=== PATIENT | female | born 1990 | race African-American/Black ===

== ENCOUNTER 2016-10-04 16:58 | Emergency (ER) | payer OTHER ==
[~2016-10-04] VITALS: Ht 180.3 cm; Wt 180.1 kg
[~2016-10-04 16:58] MED LIST: ABILIFY; ABILIFY10 MG PO; ACCUNEB SO1.25 MG/1; ANTIVERT25 MG PO; APAP/CODEINE ELI5 M1 OR; ASPIR 8181 MG PO; ATIVAN0.5 M1 PO; ATIVAN1 MG PO; AZITHROMYCIN 2250 MG PO; BENADRYL25 MG PO; CLEOCIN HCL150 MG PO; COLACE100 MG PO; COMBIVENT INH; COZAAR; FLEXERIL PO; FLONASE 0.05%50 MCG NASAL; GABAPENTIN 100100 MG PO; HYCET 7.5 MG-3473 ML PO; IBUPROFEN 600600 M1 PO; IBUPROFEN 800800 M1 PO; IBUPROFEN 800800 MG PO; IRON325 PO; LEXAPRO 10 MG T10 M1 PO; LISINOPRIL10 MG PO; LISINOPRIL20 MG PO; LOPRESSOR25 PO; MEDROLDOSEPACK PO; MEDROXYPROGESTE10 MG PO; METFORMIN 500500 MG PO; METFORMIN HCL1000 MG PO; METFORMIN HCL500 MG PO; MUCINEX TA600 MG/TA2 PO; NAPROSYN500 MG PO; NORCO 5-325 TA1 EACH PO; NORVASC2.5 MG; OLEPTRO ER300 M1 PO; OLEPTRO ER300 MG PO; ONDANSETRON HCL4 M2 PO; PENICILLIN VK500 M1 PO; PEPCID40 MG PO; PHENERGAN 25 MG25 M1 PO; PHENERGAN 25 MG25 MG PO; PREDNISONE 20 M20 M1 PO; PREDNISONE50 MG PO; PROAIR HFA8.5 GM INH; PROMETHAZINE-C120 ML PO; PROPRANOLOL 1010 MG PO; PROVENTIL HFA6.7 G1 INH; REGLAN 10 MG TA10 MG PO; TOPAMAX 25 MG T25 M1 PO; TRINATE TABLET1 TAB PO; TYLENOL COLD H1 EACH PO; VALIUM2 MG PO; VENTOLIN HFA 1818 GM INH; VENTOLIN HFA INH8 GM IH; WELLBUTRIN XL150 M1 PO; XANAX 0.5 MG0.5 MG PO; ZOFRAN ODT4 MG PO; ZPAK PO
[2016-10-04] MEDS ORDERED: CLEOCIN HCL300 MG PO (17:33)
[2016-10-04] MEDS ORDERED: ONDANSETRON HCL4 M2 PO (17:38)
[2016-10-04 18:29] VITALS: BP 128/87
== END 2016-10-04 18:20 | disposition home or self-care (01) ==
LOC: ER 16:58
DX: K04.01 Reversible pulpitis (principal); K08.89 Other specified disorders of teeth and supporting structures; K02.9 Dental caries, unspecified; R11.0 Nausea; I11.0 Hypertensive heart disease with heart failure; I50.9 Heart failure, unspecified; E11.9 Type 2 diabetes mellitus without complications; J45.909 Unspecified asthma, uncomplicated; I48.91 Unspecified atrial fibrillation; Z98.890 Other specified postprocedural states; Z88.8 Allergy status to other drugs, medicaments and biological substances; Z88.0 Allergy status to penicillin; Z91.010 Allergy to peanuts

== ENCOUNTER 2016-11-22 00:01 | Observation (INO) | payer OTHER ==
[~2016-11-22] VITALS: Ht 180.3 cm; Wt 202.3 kg
--- NOTE | ~2016-11-22 | 2DMMODE ---
[facility] [place] [address] 2 D/M-MODE ECHOCARDIOGRAM Name: RADHA BOURGEOIS Room #: 208-P [facility] IN ..#: [id number] Admission: 11/22/16 Attend Phys: Amando Galeano MD Discharge: Date of : 86 Date of Service: 11/22/16 1507 Report #: [id number] THIS REPORT FOR: //name// APPROVED REPORT EXAM: Comprehensive 2D, Doppler, and color-flow Echocardiogram Patient Location: Bedside Blood Pressure: 112/54 mmHg HR: 67 bpm Other Information Study Quality: Adequate Indications Diabetes Hypertension/HDD Chest Pain 2D Dimensions LVEF(%): 57.19 (>50%) IVSd: 8.62 (7-11mm) LVOT Diam: 24.24 (18-24mm) LVDd: 53.83 mm PWd: 8.69 (7-11mm) Ascending Aorta: 31.61 mm LVDs: 37.51 (25-40mm) IVC: 11.00 mm Aortic Root: 33.00 mm López's LVEF: 57.19 % Volumes Left Atrial Volume (Systole) Single Plane 4CH: 89.89 mL Single Plane 2CH: 61.89 mL LA ESV Index: 28.00 mL/m2 Aortic Valve AoV Peak Robbie.: 1.60 m/s AO Peak Gr.: 10.22 mmHg LV Max P.43 mmHg LV Max: 1.05 m/s Mitral Valve MV PHT: 66.33 ms MV E Max Robbie.: 0.84 m/s E/A Ratio: 1.3 MV A Robbie.: 0.65 m/s MV Decel. Time: 228.73 ms [facility] [place] [address] [place] [address] 2 D/M-MODE ECHOCARDIOGRAM Name: RADHA BOURGEOIS [facility] Room #: 208-P [facility] IN ..#: [id number] Admission: 11/22/16 Attend Phys: Amando Galeano MD Discharge: Date of : 86 Date of Service: 11/22/16 1507 Report #: [id number] Pulmonary Valve PV Peak Robbie.: 0.85 m/s PV Peak Gr.: 5.63 mmHg IA End Vmax: 0.85 m/s Tricuspid Valve TR Peak Robbie.: 2.43 m/s RAP Estimate: 5.00 mmHg TR Peak Gr.: 23.61 mmHg Left Ventricle The left ventricle is normal size. There is normal LV segmental wall motion. There is normal left ventricular wall thickness. Left ventricular systolic function is normal. The left ventricular ejection fraction is within the normal range. LVEF is 55-60%. The left ventricular diastolic function is normal. Right Ventricle The right ventricle is normal size. The right ventricular systolic function is normal. Atria The left atrium size is normal. The right atrium size is normal. Aortic Valve The aortic valve is normal in structure. No aortic regurgitation is present. There is no aortic valvular stenosis. Mitral Valve The mitral valve is normal in structure. Trace mitral regurgitation. Tricuspid Valve The tricuspid valve is normal in structure. There is trace tricuspid regurgitation. The right atrial pressure is estimated at 5 mmHg. There is no pulmonary hypertension. Pulmonic Valve The pulmonary valve is normal in structure. There is no pulmonic valvular regurgitation. Great Vessels The aortic root is normal in size. IVC is normal in size and collapses >50% with inspiration. Pericardium There is no pericardial effusion. [facility] [address] [place] [address] 2 D/M-MODE ECHOCARDIOGRAM Name: RADHA BOURGEOIS Room #: 208-P [facility] IN .R.#: [id number] Admission: 11/22/16 Attend Phys: Amando Galeano MD Discharge: Date of : 86 Date of Service: 11/22/16 1507 Report #: [id number] <Conclusion> The left ventricle is normal size. Left ventricular systolic function is normal. LVEF is 55-60%. Trace mitral regurgitation. There is trace tricuspid regurgitation. The right atrial pressure is estimated at 5 mmHg. There is no pulmonary hypertension. <ELECTRONICALLY SIGNED> By: Guru Cabrera MD 11/22/16 1507 1507 1507 Guru Cabrera MD /INF
--- NOTE | ~2016-11-22 | EKG ---
[address] [place] [address] ELECTROCARDIOGRAM REPORT Name: RADHA BOURGEOIS Room #: 208-P [facility]..#: [id number] Admission: 11/22/16 Attend Phys: Amando Galeano MD Discharge: Date of : 86 Report #: [id number] THIS REPORT FOR: //name// [facility] ED Test Date: 2016-11-22 Test Time: 00:06:13 Pat Name: RADHA BOURGEOIS Department: Room: 208 Gender: F Supervisor Game Farm: RAYSHAWN : 1990 Requested By: Smith Chiang Order Number: [id number] MD: Alex Leggett Measurements Intervals [place] Rate: 82 P: 56 [place]: 159 QRS: 4 QRSD: 90 T: 15 QT: 386 QTc: 451 Interpretive Statements Sinus rhythm Probable left atrial enlargement Probable left ventricular hypertrophy Compared to ECG 11/13/2016 13:30:33 Sinus arrhythmia no longer present Electronically Signed On 11-22-2016 9:06:15 CDT by Alex Leggett [email or web address] <ELECTRONICALLY SIGNED> By: Alex Leggett MD, [facility] 11/22/16905 Alex Leggett MD, FAC /EPI
[~2016-11-22 00:01] MED LIST changes: +CLEOCIN HCL300 MG PO
[2016-11-22] MEDS ORDERED: XANAX 0.5 MG0.5 MG PO (00:12)
[2016-11-22 02:22] LABS: ABSOLUTE NEUTROPHILS 6.4 thou/uL (1.4-8.2); BASOPHILS 0.2 % (0.0-2.0); EOSINOPHILS 1.4 % (0.0-3.0); HEMATOCRIT 29.5 % (37.0-47.0); HEMOGLOBIN 9.4 gm/dL (12.0-15.0); LYMPHOCYTES 28.6 % (24.0-44.0); MCH 22.5 pg (26.0-34.0); MCHC 31.8 g/dL (28.0-37.0); MCV 70.7 fL (80.0-100.0); MONOCYTES 5.9 % (1.0-8.0); PLATELET COUNT 360 thou/uL (150-400); POLYS 63.9 % (36.0-66.0); RBC 4.17 mil/uL (4.20-5.00); WBC 10.1 thou/uL (4.0-11.0)
[2016-11-22 02:24] LABS: MANUAL DIFF NO
[2016-11-22 02:35] LABS: APTT 29.3 Seconds (24.5-32.8); PROTIME 10.5 Seconds (9.3-11.4)
[2016-11-22 02:40] LABS: ALBUMIN 3.3 g/dL (3.4-5.0); ALKALINE PHOSPHATASE 84 U/L (46-116); ANION GAP 9 mmol/L (7-16); BUN 19 mg/dL (7-18); CALCIUM 8.8 mg/dL (8.5-10.1); CHLORIDE 104 mmol/L (98-107); CO2 25 mmol/L (21-32); CREATININE 0.8 mg/dL (0.6-1.3); MAGNESIUM 1.8 mg/dL (1.8-2.4); NT-PRO BRAIN NAT PEPTIDE 23 pg/mL (<300); SGOT 12 U/L (15-37); SGPT 21 U/L (30-65); SODIUM 138 mmol/L (136-145); TOTAL BILIRUBIN 0.2 mg/dL (<0.1-1.0); TOTAL PROTEIN 6.9 g/dL (6.4-8.2)
[2016-11-22 02:49] LABS: GLUCOSE 111 mg/dL (70-99)
[2016-11-22 03:01] LABS: CK-MB MASS < 0.5 ng/mL (<0.5-3.6)
[2016-11-23] MEDS ORDERED: HYDROCODON-ACE1 EAC7 PO (11:45)
== END 2016-11-23 13:55 | disposition home or self-care (01) ==
LOC: ER 00:01 → EROBS 01:53 → ER 01:53 → EROBS 02:08 → 2N 02:08
PROVIDERS: Emergency Medicine
DX: I47.1 Supraventricular tachycardia (principal); E66.01 Morbid (severe) obesity due to excess calories; J45.909 Unspecified asthma, uncomplicated; I11.0 Hypertensive heart disease with heart failure; I50.9 Heart failure, unspecified; E11.9 Type 2 diabetes mellitus without complications; D21.9 Benign neoplasm of connective and other soft tissue, unspecified; G43.909 Migraine, unspecified, not intractable, without status migrainosus; E86.0 Dehydration

== ENCOUNTER 2017-01-15 18:57 | Emergency (ER) | payer OTHER ==
[~2017-01-15] VITALS: Ht 180.3 cm; Wt 202.3 kg
--- NOTE | ~2017-01-15 | EKG ---
[place] [address] [facility] [place] [address] ELECTROCARDIOGRAM REPORT Name: BKRADHA TANG Room #: [facility] M.R.#: [id number] Admission: Attend Phys: Discharge: Date of : 86 Report #: [id number] THIS REPORT FOR: //name// [facility] ED Test Date: 2017-01-15 Test Time: 19:32:29 Pat Name: RADHA BOURGEOIS Department: Room: Gender: F Staff Software Engineer: URI : 1990 Requested By: Umair Trujillo Order Number: [id number] MD: Measurements Intervals [place] Rate: 89 P: 54 [place]: 154 QRS: -3 QRSD: 89 T: -3 QT: 365 QTc: 445 Interpretive Statements Sinus rhythm LVH by voltage Compared to ECG 11/22/2016 00:06:13 No significant changes [email or web address] By: 31 31 Ernestine Sinha MD /EPI
[~2017-01-15 18:57] MED LIST changes: +HYDROCODON-ACE1 EAC7 PO
[2017-01-15 20:42] LABS: ABSOLUTE NEUTROPHILS 9.4 thou/uL (1.4-8.2); BASOPHILS 0.8 % (0.0-2.0); HEMATOCRIT 29.5 % (37.0-47.0); HEMOGLOBIN 9.3 gm/dL (12.0-15.0); LYMPHOCYTES 21.3 % (24.0-44.0); MCHC 31.6 g/dL (28.0-37.0); MCV 69.5 fL (80.0-100.0); MONOCYTES 4.6 % (1.0-8.0); PLATELET COUNT 297 thou/uL (150-400); POLYS 72.3 % (36.0-66.0); RBC 4.24 mil/uL (4.20-5.00); RDW 18.5 % (10.5-14.5); WBC 13.7 thou/uL (4.0-11.0)
[2017-01-15 20:43] LABS: MANUAL DIFF NO
[2017-01-15 20:50] LABS: CALCIUM 8.8 mg/dL (8.5-10.1); CREATININE 0.8 mg/dL (0.6-1.0); POTASSIUM 4.1 mmol/L (3.5-5.1)
[2017-01-15 20:55] LABS: ALBUMIN 3.2 g/dL (3.4-5.0); TOTAL BILIRUBIN 0.3 mg/dL (<0.1-1.0); TOTAL PROTEIN 7.5 g/dL (6.4-8.2)
[2017-01-15 22:12] LABS: URINE BILIRUBIN NEGATIVE (Negative); URINE BLOOD NEGATIVE (Negative); URINE COLOR YELLOW; URINE GLUCOSE-RANDOM* NEGATIVE (Negative); URINE KETONES NEGATIVE (Negative); URINE NITRITE NEGATIVE (Negative); URINE PROTEIN (DIPSTICK) NEGATIVE (Negative); URINE SPECIFIC GRAVITY 1.025 (1.003-1.035)
[2017-01-15] MEDS ORDERED: NORCO 5-325 TA1 EACH PO (22:22)
[2017-01-15] MEDS ORDERED: MACROBID 100 M100 M1 PO (22:23)
[2017-01-15] MEDS ORDERED: TORADOL 10 MG T10 MG PO (22:23)
== END 2017-01-15 22:37 | disposition home or self-care (01) ==
LOC: ER 18:57
PROVIDERS: Physician Assistant
DX: N83.201 Unspecified ovarian cyst, right side (principal); I11.0 Hypertensive heart disease with heart failure; I50.9 Heart failure, unspecified; G43.909 Migraine, unspecified, not intractable, without status migrainosus; E11.9 Type 2 diabetes mellitus without complications; J45.909 Unspecified asthma, uncomplicated; I48.91 Unspecified atrial fibrillation; Z86.2 Personal history of diseases of the blood and blood-forming organs and certain disorders involving the immune mechanism; Z88.0 Allergy status to penicillin; Z91.010 Allergy to peanuts; Z88.8 Allergy status to other drugs, medicaments and biological substances

== ENCOUNTER 2017-04-10 10:51 | Emergency (ER) | payer OTHER ==
[~2017-04-10] VITALS: Ht 180.3 cm; Wt 180.1 kg
[~2017-04-10 10:51] MED LIST changes: +MACROBID 100 M100 M1 PO; +TORADOL 10 MG T10 MG PO
[2017-04-10] MEDS ORDERED: FLONASE 0.05%50 MCG NASAL (11:15)
[2017-04-10] MEDS ORDERED: CLARITIN10 MG PO (11:15)
[2017-04-10] MEDS ORDERED: PROAIR HFA8.5 GM INH (11:15)
== END 2017-04-10 11:16 | disposition home or self-care (01) ==
LOC: ER 10:51
DX: J32.9 Chronic sinusitis, unspecified (principal); J06.9 Acute upper respiratory infection, unspecified; I11.0 Hypertensive heart disease with heart failure; I50.9 Heart failure, unspecified; E11.9 Type 2 diabetes mellitus without complications; J45.909 Unspecified asthma, uncomplicated; G43.909 Migraine, unspecified, not intractable, without status migrainosus; I48.91 Unspecified atrial fibrillation; Z91.010 Allergy to peanuts; Z88.0 Allergy status to penicillin; Z88.8 Allergy status to other drugs, medicaments and biological substances

== ENCOUNTER 2017-04-26 02:43 | Emergency (ER) | payer OTHER ==
[~2017-04-26] VITALS: Ht 180.3 cm; Wt 180.1 kg
[~2017-04-26 02:43] MED LIST changes: +CLARITIN10 MG PO
[2017-04-26 03:04] LABS: URINE BILIRUBIN NEGATIVE (Negative); URINE BLOOD 3+ (Negative); URINE COLOR YELLOW; URINE GLUCOSE-RANDOM* NEGATIVE (Negative); URINE KETONES NEGATIVE (Negative); URINE LEUKOCYTES-REFLEX 1+ (Negative); URINE PROTEIN (DIPSTICK) NEGATIVE (Negative); URINE SPECIFIC GRAVITY 1.015 (1.003-1.035); URINE UROBILINOGEN 0.2 E.U./dl (0.2-1.0)
[2017-04-26 03:21] LABS: SQUAMOUS >10 Many /LPF (0-3)
[2017-04-26 03:22] LABS: AMORPHOUS URATES Few /LPF (None Seen); CASTS None Seen /LPF (None Seen); URINE WBC-REFLEX 0-5 Rare /HPF (0-5)
[2017-04-26] MEDS ORDERED: KEFLEX500 MG PO (04:48)
[2017-04-29 22:06] LABS: CHLAMYDIA TRACHOMATIS-PCR Negative (Negative); NEISSERIA GONORRHEA-PCR Negative (Negative)
== END 2017-04-26 05:07 | disposition home or self-care (01) ==
LOC: ER 02:43
PROVIDERS: Emergency Medicine
DX: N39.0 Urinary tract infection, site not specified (principal); E11.9 Type 2 diabetes mellitus without complications; J45.909 Unspecified asthma, uncomplicated; G43.909 Migraine, unspecified, not intractable, without status migrainosus; I48.91 Unspecified atrial fibrillation; I11.0 Hypertensive heart disease with heart failure; I50.9 Heart failure, unspecified; Z86.2 Personal history of diseases of the blood and blood-forming organs and certain disorders involving the immune mechanism; Z90.89 Acquired absence of other organs; Z88.8 Allergy status to other drugs, medicaments and biological substances; Z88.0 Allergy status to penicillin; Z91.010 Allergy to peanuts

== ENCOUNTER 2017-05-31 20:18 | Emergency (ER) | payer OTHER ==
[~2017-05-31] VITALS: Ht 180.3 cm; Wt 203.7 kg
[~2017-05-31 20:18] MED LIST changes: +KEFLEX500 MG PO
[2017-05-31] MEDS ORDERED: TRAMADOL 50 MG50 MG PO (21:32)
[2017-05-31 22:32] LABS: ABSOLUTE NEUTROPHILS 8.5 thou/uL (1.4-8.2); BASOPHILS 0.2 % (0.0-2.0); EOSINOPHILS 0.7 % (0.0-3.0); HEMATOCRIT 26.7 % (37.0-47.0); HEMOGLOBIN 8.4 gm/dL (12.0-15.0); MANUAL DIFF NO; MCH 21.2 pg (26.0-34.0); MCHC 31.4 g/dL (28.0-37.0); MCV 67.4 fL (80.0-100.0); MONOCYTES 4.6 % (1.0-8.0); PLATELET COUNT 453 thou/uL (150-400); POLYS 76.5 % (36.0-66.0); RBC 3.96 mil/uL (4.20-5.00); RDW 18.4 % (10.5-14.5); WBC 11.1 thou/uL (4.0-11.0)
[2017-05-31 22:37] LABS: URINE BLOOD 3+ (Negative); URINE COLOR YELLOW; URINE GLUCOSE-RANDOM* NEGATIVE (Negative); URINE KETONES NEGATIVE (Negative); URINE NITRITE NEGATIVE (Negative); URINE PROTEIN (DIPSTICK) 1+ (Negative); URINE UROBILINOGEN 0.2 E.U./dl (0.2-1.0)
[2017-05-31 22:41] LABS: ICTOTEST (BILI CONFIRMATORY) Negative (Negative); URINE BILIRUBIN NEGATIVE (Negative)
[2017-05-31 22:47] LABS: ANISOCYTOSIS 2+; HYPOCHROMASIA 2+; MICROCYTES 2+; POLYCHROMASIA 1+
[2017-05-31 23:02] LABS: CASTS None Seen /LPF (None Seen); SQUAMOUS None Seen /LPF (0-3); URINE WBC 0-5 Rare /HPF (0-5)
[2017-05-31 23:03] LABS: CRYSTALS None Seen /LPF (None Seen); URINE RBC >20 Many /HPF (0-2)
[2017-06-03 17:07] LABS: CHLAMYDIA TRACHOMATIS-PCR Negative (Negative); NEISSERIA GONORRHEA-PCR Negative (Negative)
== END 2017-05-31 23:27 | disposition home or self-care (01) ==
LOC: ER 20:18
PROVIDERS: Physician Assistant
DX: N93.8 Other specified abnormal uterine and vaginal bleeding (principal); D64.9 Anemia, unspecified; I11.0 Hypertensive heart disease with heart failure; I50.9 Heart failure, unspecified; E11.9 Type 2 diabetes mellitus without complications; G43.909 Migraine, unspecified, not intractable, without status migrainosus; I48.91 Unspecified atrial fibrillation; Z88.0 Allergy status to penicillin; Z91.010 Allergy to peanuts; Z88.8 Allergy status to other drugs, medicaments and biological substances

== ENCOUNTER 2017-06-17 04:41 | Emergency (ER) | payer OTHER ==
[~2017-06-17] VITALS: Ht 180.3 cm; Wt 192.8 kg
[~2017-06-17 04:41] MED LIST changes: +TRAMADOL 50 MG50 MG PO
[2017-06-17] MEDS ORDERED: IBUPROFEN 200200 M1 PO (04:47)
[2017-06-17] MEDS ORDERED: NAPROSYN500 MG PO (04:47)
[2017-06-17 05:32] LABS: ABSOLUTE NEUTROPHILS 7.3 thou/uL (1.4-8.2); BASOPHILS 0.3 % (0.0-2.0); EOSINOPHILS 1.2 % (0.0-3.0); HEMATOCRIT 25.5 % (37.0-47.0); LYMPHOCYTES 23.1 % (24.0-44.0); MCH 20.8 pg (26.0-34.0); MCHC 31.5 g/dL (28.0-37.0); MCV 66.1 fL (80.0-100.0); MONOCYTES 4.1 % (1.0-8.0); PLATELET COUNT 465 thou/uL (150-400); POLYS 71.3 % (36.0-66.0); RBC 3.86 mil/uL (4.20-5.00); RDW 18.6 % (10.5-14.5); WBC 10.2 thou/uL (4.0-11.0)
[2017-06-17 05:33] LABS: MANUAL DIFF NO
[2017-06-17 05:46] LABS: ANISOCYTOSIS 2+; HYPOCHROMASIA 2+; LARGE PLATELETS SEVERAL; MICROCYTES 3+
[2017-06-17] MEDS ORDERED: PROVERA10 MG PO (05:54)
== END 2017-06-17 06:25 | disposition home or self-care (01) ==
LOC: ER 04:41
PROVIDERS: Emergency Medicine
DX: N94.6 Dysmenorrhea, unspecified (principal); D64.9 Anemia, unspecified; E66.01 Morbid (severe) obesity due to excess calories

== ENCOUNTER 2017-08-06 15:54 | Emergency (ER) | payer OTHER ==
[~2017-08-06] VITALS: Ht 180.3 cm; Wt 192.8 kg
--- NOTE | ~2017-08-06 | EKG ---
[place] [address] [facility] [place] [address] ELECTROCARDIOGRAM REPORT Name: RADHA BOURGEOIS TANG [facility] [id number] Admission: 08/06/17 Attend Phys: Discharge: 08/06/17 Date of : 86 Report #: [id number] THIS REPORT FOR: //name// [facility] ED Test Date: 2017-08-06 Test Time: 16:05:02 Pat Name: RADHA BOURGEOIS Department: Room: Gender: F Manager Of Pharmacy: VANESA : 1990 Requested By: Order Number: [id number] MD: Gustavo Munoz Measurements Intervals [place] Rate: 78 P: 46 [place]: 153 QRS: 0 QRSD: 90 T: 3 QT: 382 QTc: 436 Interpretive Statements Sinus rhythm LVH by voltage Compared to ECG 02/01/2017 18:16:57 T-wave abnormality now present Electronically Signed On 08-06-2017 20:19:50 SKINNER [employer]ELTS by Gustavo Munoz [email or web address] <ELECTRONICALLY SIGNED> By: Gustavo Munoz MD 08/06/172018 1605 1605 MD ОЛЬГА Will
[~2017-08-06 15:54] MED LIST changes: +IBUPROFEN 200200 M1 PO; +PROVERA10 MG PO
[2017-08-06 16:37] LABS: HEMATOCRIT 27.7 % (37.0-47.0); HEMOGLOBIN 8.6 gm/dL (12.0-15.0); MCH 19.9 pg (26.0-34.0); MCHC 31.1 g/dL (28.0-37.0); MCV 64.1 fL (80.0-100.0); PLATELET COUNT 460 thou/uL (150-400); RBC 4.32 mil/uL (4.20-5.00); RDW 19.5 % (10.5-14.5); WBC 9.9 thou/uL (4.0-11.0)
[2017-08-06 16:51] LABS: CALCIUM 8.8 mg/dL (8.5-10.1); CREATININE 0.7 mg/dL (0.6-1.0); POTASSIUM 3.9 mmol/L (3.5-5.1)
[2017-08-06 16:54] LABS: MANUAL DIFF YES
[2017-08-06 16:57] LABS: ALBUMIN 2.9 g/dL (3.4-5.0); TOTAL BILIRUBIN 0.3 mg/dL (<0.1-1.0); TOTAL PROTEIN 7.3 g/dL (6.4-8.2)
[2017-08-06 17:45] LABS: ABSOLUTE NEUTROPHILS 7.2 thou/uL (1.4-8.2); ANISOCYTOSIS 3+; MICROCYTES 3+; TOTAL CELL COUNT 100
[2017-08-06 17:46] LABS: HYPOCHROMASIA 3+; SCHISTOCYTES FEW
[2017-08-06] MEDS ORDERED: SIMETHICON CHEW80 M1 PO (18:29)
[2017-08-06] MEDS ORDERED: CITRATE OF MAG296 M1 PO (18:29)
[2017-08-06] MEDS ORDERED: SENNA-DOCUSATE1 EACH PO (18:29)
== END 2017-08-06 19:08 | disposition home or self-care (01) ==
LOC: ER 15:54
PROVIDERS: Emergency Medicine
DX: K59.00 Constipation, unspecified (principal); I11.0 Hypertensive heart disease with heart failure; I50.9 Heart failure, unspecified; E11.9 Type 2 diabetes mellitus without complications; J45.909 Unspecified asthma, uncomplicated; I48.91 Unspecified atrial fibrillation; G43.909 Migraine, unspecified, not intractable, without status migrainosus; Z86.2 Personal history of diseases of the blood and blood-forming organs and certain disorders involving the immune mechanism; Z88.0 Allergy status to penicillin; Z88.8 Allergy status to other drugs, medicaments and biological substances; Z91.010 Allergy to peanuts

== ENCOUNTER 2017-08-26 21:49 | Emergency (ER) | payer OTHER ==
[~2017-08-26] VITALS: Ht 180.3 cm; Wt 180.1 kg
[~2017-08-26 21:49] MED LIST changes: +CITRATE OF MAG296 M1 PO; +SENNA-DOCUSATE1 EACH PO; +SIMETHICON CHEW80 M1 PO
[2017-08-26 22:17] LABS: URINE BILIRUBIN NEGATIVE (Negative); URINE BLOOD 1+ (Negative); URINE COLOR YELLOW; URINE GLUCOSE-RANDOM* NEGATIVE (Negative); URINE KETONES NEGATIVE (Negative); URINE LEUKOCYTES-REFLEX NEGATIVE (Negative); URINE PROTEIN (DIPSTICK) NEGATIVE (Negative); URINE UROBILINOGEN 0.2 E.U./dl (0.2-1.0)
[2017-08-26 22:32] LABS: CASTS None Seen /LPF (None Seen); CRYSTALS None Seen /LPF (None Seen); SQUAMOUS 4-10 Moderate /LPF (0-3); URINE RBC 0-2 Rare /HPF (0-2); URINE WBC-REFLEX 0-5 Rare /HPF (0-5)
[2017-08-26] MEDS ORDERED: ZOFRAN4 MG PO (22:46)
== END 2017-08-26 22:52 | disposition home or self-care (01) ==
LOC: ER 21:49
PROVIDERS: Emergency Medicine
DX: T40.2X5A Adverse effect of other opioids, initial encounter (principal); R11.2 Nausea with vomiting, unspecified; R39.15 Urgency of urination; I10 Essential (primary) hypertension; E11.9 Type 2 diabetes mellitus without complications; J45.909 Unspecified asthma, uncomplicated; I48.91 Unspecified atrial fibrillation; R00.0 Tachycardia, unspecified; I50.9 Heart failure, unspecified; I49.8 Other specified cardiac arrhythmias; Z98.890 Other specified postprocedural states; Z88.0 Allergy status to penicillin; Z88.8 Allergy status to other drugs, medicaments and biological substances; Y92.89 Other specified places as the place of occurrence of the external cause; Z91.010 Allergy to peanuts

== ENCOUNTER 2017-12-09 19:47 | Emergency (ER) | payer OTHER ==
[~2017-12-09] VITALS: Ht 180.3 cm; Wt 192.3 kg
[~2017-12-09 19:47] MED LIST changes: +ZOFRAN4 MG PO
[2017-12-09 20:09] LABS: URINE BILIRUBIN NEGATIVE (Negative); URINE BLOOD 3+ (Negative); URINE CLARITY SL CLOUDY; URINE COLOR YELLOW; URINE GLUCOSE-RANDOM* NEGATIVE (Negative); URINE KETONES NEGATIVE (Negative); URINE LEUKOCYTES NEGATIVE (Negative); URINE NITRITE NEGATIVE (Negative); URINE PROTEIN (DIPSTICK) TRACE (Negative); URINE SPECIFIC GRAVITY 1.025 (1.005-1.035); URINE UROBILINOGEN 0.2 E.U./dl (0.2-1.0)
[2017-12-09 20:17] LABS: CASTS None Seen /LPF (None Seen); CRYSTALS None Seen /LPF (None Seen); SQUAMOUS 0-3 Few /LPF (0-3); URINE WBC 0-5 Rare /HPF (0-5)
[2017-12-09 20:37] LABS: HEMATOCRIT 27.5 % (37.0-47.0); HEMOGLOBIN 8.6 gm/dL (12.0-15.0); MCH 19.9 pg (26.0-34.0); MCHC 31.1 g/dL (28.0-37.0); RBC 4.29 mil/uL (4.20-5.00); RDW 20.1 % (10.5-14.5); WBC 11.4 thou/uL (4.0-11.0)
[2017-12-09 20:47] LABS: CALCIUM 8.8 mg/dL (8.5-10.1); CREATININE 0.9 mg/dL (0.6-1.0); POTASSIUM 3.5 mmol/L (3.5-5.1)
[2017-12-09] MEDS ORDERED: HYDROCODONE-AP1 EAC6 PO ×2 (21:02→21:06)
[2017-12-09] MEDS ORDERED: IRON325 PO ×2 (21:02→21:06)
[2017-12-09] MEDS ORDERED: PROVERA10 MG PO ×2 (21:13→21:14)
[2017-12-11 14:09] LABS: NEISSERIA GONORRHEA-PCR Negative (Negative)
== END 2017-12-09 21:29 | disposition home or self-care (01) ==
LOC: ER 19:47
PROVIDERS: Physician Assistant
DX: N94.6 Dysmenorrhea, unspecified (principal); D64.9 Anemia, unspecified; E11.9 Type 2 diabetes mellitus without complications; J45.909 Unspecified asthma, uncomplicated; I11.0 Hypertensive heart disease with heart failure; I50.9 Heart failure, unspecified; G43.909 Migraine, unspecified, not intractable, without status migrainosus; I48.91 Unspecified atrial fibrillation; Z88.0 Allergy status to penicillin; Z88.8 Allergy status to other drugs, medicaments and biological substances; Z91.010 Allergy to peanuts; Z20.2 Contact with and (suspected) exposure to infections with a predominantly sexual mode of transmission

== ENCOUNTER 2018-01-03 17:41 | Emergency (ER) | payer OTHER ==
[~2018-01-03] VITALS: Ht 180.3 cm; Wt 192.8 kg
[~2018-01-03 17:41] MED LIST changes: +HYDROCODONE-AP1 EAC6 PO
[2018-01-03] MEDS ORDERED: BACTRIM DS TAB1 EACH PO (18:45)
[2018-01-03] MEDS ORDERED: HYDROCODONE-AP1 EAC6 PO (18:45)
== END 2018-01-03 20:20 | disposition home or self-care (01) ==
LOC: ER 17:41
DX: S81.841A Puncture wound with foreign body, right lower leg, initial encounter (principal); E11.9 Type 2 diabetes mellitus without complications; J45.909 Unspecified asthma, uncomplicated; G43.909 Migraine, unspecified, not intractable, without status migrainosus; I48.91 Unspecified atrial fibrillation; I11.0 Hypertensive heart disease with heart failure; I50.9 Heart failure, unspecified; Z88.0 Allergy status to penicillin; W34.00XA Accidental discharge from unspecified firearms or gun, initial encounter; Y93.89 Activity, other specified; Y92.89 Other specified places as the place of occurrence of the external cause; Y99.8 Other external cause status

== ENCOUNTER 2018-02-12 14:14 | Emergency (ER) | payer OTHER ==
[~2018-02-12] VITALS: Ht 180.3 cm; Wt 192.8 kg
[~2018-02-12 14:14] MED LIST changes: +ADVIL200 M1 PO; +ASPIRIN325 PO; +BACTRIM DS TAB1 EACH PO; +PHENAZOPYRIDIN200 M2 PO; +PREDNISONE 10 M10 MG PO
[2018-02-12 15:33] LABS: URINE BILIRUBIN NEGATIVE (Negative); URINE BLOOD 3+ (Negative); URINE CLARITY CLEAR; URINE COLOR YELLOW; URINE GLUCOSE-RANDOM* NEGATIVE (Negative); URINE KETONES NEGATIVE (Negative); URINE LEUKOCYTES-REFLEX NEGATIVE (Negative); URINE NITRITE-REFLEX NEGATIVE (Negative); URINE PROTEIN (DIPSTICK) NEGATIVE (Negative); URINE SPECIFIC GRAVITY 1.015 (1.005-1.035); URINE UROBILINOGEN 0.2 E.U./dl (0.2-1.0)
[2018-02-12 15:42] LABS: BACTERIA-REFLEX None Seen /HPF (None Seen); CASTS None Seen /LPF (None Seen); CRYSTALS None Seen /LPF (None Seen); SQUAMOUS 4-10 Moderate /LPF (0-3); URINE RBC 3-10 Few /HPF (0-2); URINE WBC-REFLEX 0-5 Rare /HPF (0-5)
[2018-02-12] MEDS ORDERED: MEDROXYPROGESTE10 MG PO (16:37)
[2018-02-13 14:12] LABS: NEISSERIA GONORRHEA-PCR Negative (Negative)
== END 2018-02-12 17:10 | disposition home or self-care (01) ==
LOC: ER 14:14
PROVIDERS: Emergency Medicine
DX: R10.2 Pelvic and perineal pain (principal); E11.9 Type 2 diabetes mellitus without complications; J45.909 Unspecified asthma, uncomplicated; G43.909 Migraine, unspecified, not intractable, without status migrainosus; I48.91 Unspecified atrial fibrillation; I11.0 Hypertensive heart disease with heart failure; I50.9 Heart failure, unspecified; Z88.0 Allergy status to penicillin; Z91.010 Allergy to peanuts

== ENCOUNTER 2018-02-26 14:57 | Inpatient (IN) | payer OTHER ==
[~2018-02-26] VITALS: Ht 180.3 cm; Wt 208.2 kg
[2018-02-26 14:58] VITALS: BP 120/55
[2018-02-26 18:33] VITALS: BP 128/67
[2018-02-26 18:39] LABS: HEMATOCRIT 26.1 % (37.0-47.0); HEMOGLOBIN 8.2 gm/dL (12.0-15.0); MCH 19.8 pg (26.0-34.0); MCHC 31.4 g/dL (28.0-37.0); RBC 4.15 mil/uL (4.20-5.00); RDW 19.5 % (10.5-14.5); WBC 13.3 thou/uL (4.0-11.0)
[2018-02-26 18:50] LABS: CALCIUM 8.9 mg/dL (8.5-10.1); CREATININE 0.7 mg/dL (0.6-1.0); POTASSIUM 3.7 mmol/L (3.5-5.1)
[2018-02-26 19:39] VITALS: BP 128/67
[2018-02-26 20:00] VITALS: BP 120/69
[2018-02-27 04:48] VITALS: BP 106/60
[2018-02-27 05:28] LABS: HEMATOCRIT 25.3 % (37.0-47.0); HEMOGLOBIN 7.7 gm/dL (12.0-15.0); MCH 19.4 pg (26.0-34.0); MCHC 30.4 g/dL (28.0-37.0); MCV 63.7 fL (80.0-100.0); RBC 3.97 mil/uL (4.20-5.00); RDW 19.7 % (10.5-14.5); WBC 12.5 thou/uL (4.0-11.0)
[2018-02-27 05:42] LABS: CALCIUM 8.5 mg/dL (8.5-10.1); CREATININE 0.9 mg/dL (0.6-1.0); POTASSIUM 4.3 mmol/L (3.5-5.1)
[2018-02-27 16:26] LABS: URINE BILIRUBIN NEGATIVE (Negative); URINE BLOOD NEGATIVE (Negative); URINE CLARITY CLEAR; URINE COLOR YELLOW; URINE GLUCOSE-RANDOM* NEGATIVE (Negative); URINE KETONES NEGATIVE (Negative); URINE LEUKOCYTES-REFLEX 2+ (Negative); URINE NITRITE-REFLEX NEGATIVE (Negative); URINE PROTEIN (DIPSTICK) NEGATIVE (Negative); URINE UROBILINOGEN 0.2 E.U./dl (0.2-1.0)
[2018-02-27 16:48] LABS: BACTERIA-REFLEX None Seen /HPF (None Seen); CASTS None Seen /LPF (None Seen); CRYSTALS None Seen /LPF (None Seen); SQUAMOUS >10 Many /LPF (0-3)
[2018-02-27] MEDS ORDERED: PREDNISONE 10 M10 MG PO (17:09)
[2018-02-27] MEDS ORDERED: LEVAQUIN 500 M500 M4 PO (17:09)
[2018-02-27] MEDS ORDERED: PEPCID20 MG PO (17:10)
[2018-02-27] MEDS ORDERED: IRON325 PO (17:11)
[2018-02-27 19:18] VITALS: BP 115/47
[2018-02-28 00:03] VITALS: BP 139/84
[2018-02-28 07:00] VITALS: BP 116/62
[2018-02-28 07:23] LABS: ABSOLUTE NEUTROPHILS 13.4 thou/uL (1.4-8.2); HEMATOCRIT 25.3 % (37.0-47.0); HEMOGLOBIN 7.8 gm/dL (12.0-15.0); LYMPHOCYTES 12.5 % (24.0-44.0); MCH 19.7 pg (26.0-34.0); MCHC 30.9 g/dL (28.0-37.0); MCV 63.5 fL (80.0-100.0); PLATELET COUNT 468 thou/uL (150-400); POLYS 83.5 % (36.0-66.0); RBC 3.98 mil/uL (4.20-5.00); RDW 19.6 % (10.5-14.5); WBC 16.1 thou/uL (4.0-11.0)
[2018-02-28 07:33] LABS: CALCIUM 8.9 mg/dL (8.5-10.1); CREATININE 0.9 mg/dL (0.6-1.0); POTASSIUM 4.4 mmol/L (3.5-5.1)
[2018-02-28 07:35] LABS: % SATURATION 4 % (20-39); IRON 11 ug/dL (50-170); TIBC 282 ug/dL (250-450)
[2018-02-28 08:01] LABS: FERRITIN 7 ng/mL (8-252)
[2018-02-28 08:41] LABS: ANISOCYTOSIS 2+; HYPOCHROMASIA 2+; MICROCYTES 2+; PLATELET ESTIMATE INCREASED; POLYCHROMASIA SLIGHT; SCHISTOCYTES FEW
[2018-02-28 10:10] VITALS: BP 116/62
[2018-02-28 11:08] VITALS: BP 116/62
[2018-02-28 11:40] VITALS: BP 116/62
== END 2018-02-28 11:40 | disposition home or self-care (01) | DRG 872 ==
LOC: ER 14:57 → 4E 18:05 → EROBS 18:05 → 4E 19:38
PROVIDERS: Emergency Medicine; Hospitalist
DX: A41.9 Sepsis, unspecified organism (principal); J45.901 Unspecified asthma with (acute) exacerbation; Z68.44 Body mass index [BMI] 60.0-69.9, adult; I48.0 Paroxysmal atrial fibrillation; I10 Essential (primary) hypertension; E11.9 Type 2 diabetes mellitus without complications; G43.909 Migraine, unspecified, not intractable, without status migrainosus; D64.9 Anemia, unspecified; J40 Bronchitis, not specified as acute or chronic; F41.9 Anxiety disorder, unspecified; E66.9 Obesity, unspecified; Z79.82 Long term (current) use of aspirin; Z79.899 Other long term (current) drug therapy; Z88.0 Allergy status to penicillin; Z88.8 Allergy status to other drugs, medicaments and biological substances; Z91.010 Allergy to peanuts; Z91.040 Latex allergy status; Z82.49 Family history of ischemic heart disease and other diseases of the circulatory system
CPT/HCPCS: 10084

== ENCOUNTER 2018-03-08 17:36 | Emergency (ER) | payer OTHER ==
[~2018-03-08] VITALS: Ht 180.3 cm; Wt 192.8 kg
[~2018-03-08 17:36] MED LIST changes: +CIPRO500 MG PO; +LEVAQUIN 500 M500 M4 PO; +PEPCID20 MG PO
[2018-03-08 18:03] LABS: URINE BILIRUBIN NEGATIVE (Negative); URINE BLOOD TRACE (Negative); URINE CLARITY CLEAR; URINE COLOR YELLOW; URINE GLUCOSE-RANDOM* NEGATIVE (Negative); URINE KETONES NEGATIVE (Negative); URINE LEUKOCYTES TRACE (Negative); URINE NITRITE NEGATIVE (Negative); URINE PROTEIN (DIPSTICK) NEGATIVE (Negative); URINE UROBILINOGEN 0.2 E.U./dl (0.2-1.0)
[2018-03-08 18:32] LABS: HEMATOCRIT 25.6 % (37.0-47.0); HEMOGLOBIN 8.2 gm/dL (12.0-15.0); MCH 19.6 pg (26.0-34.0); MCHC 32.1 g/dL (28.0-37.0); MCV 61.1 fL (80.0-100.0); PLATELET COUNT 465 thou/uL (150-400); RBC 4.19 mil/uL (4.20-5.00); RDW 20.3 % (10.5-14.5); WBC 13.7 thou/uL (4.0-11.0)
[2018-03-08 18:34] LABS: CALCIUM 8.7 mg/dL (8.5-10.1); CREATININE 0.8 mg/dL (0.6-1.0); POTASSIUM 3.9 mmol/L (3.5-5.1)
[2018-03-08 18:40] LABS: ALBUMIN 3.3 g/dL (3.4-5.0); TOTAL BILIRUBIN 0.2 mg/dL (<0.1-1.0); TOTAL PROTEIN 7.4 g/dL (6.4-8.2)
[2018-03-08 19:13] LABS: ABSOLUTE NEUTROPHILS 10.3 thou/uL (1.4-8.2); ANISOCYTOSIS 1+; HYPOCHROMASIA 2+; MICROCYTES 3+; PLATELET ESTIMATE INCREASED
== END 2018-03-08 20:46 | disposition home or self-care (01) ==
LOC: ER 17:36
PROVIDERS: Emergency Medicine; Physician Assistant
DX: R10.13 Epigastric pain (principal); J45.909 Unspecified asthma, uncomplicated; R42 Dizziness and giddiness; R11.2 Nausea with vomiting, unspecified; R19.7 Diarrhea, unspecified; E11.9 Type 2 diabetes mellitus without complications; I10 Essential (primary) hypertension; G43.909 Migraine, unspecified, not intractable, without status migrainosus; I48.91 Unspecified atrial fibrillation; Z90.89 Acquired absence of other organs; Z91.010 Allergy to peanuts; Z88.0 Allergy status to penicillin; Z91.040 Latex allergy status; Z88.8 Allergy status to other drugs, medicaments and biological substances

== ENCOUNTER 2018-04-18 22:07 | Emergency (ER) | payer OTHER ==
[~2018-04-18] VITALS: Ht 180.3 cm; Wt 192.8 kg
[2018-04-18 23:05] LABS: URINE BILIRUBIN NEGATIVE (Negative); URINE BLOOD 3+ (Negative); URINE CLARITY CLEAR; URINE COLOR YELLOW; URINE GLUCOSE-RANDOM* NEGATIVE (Negative); URINE KETONES NEGATIVE (Negative); URINE LEUKOCYTES NEGATIVE (Negative); URINE NITRITE NEGATIVE (Negative); URINE PROTEIN (DIPSTICK) 1+ (Negative); URINE SPECIFIC GRAVITY >= 1.030 (1.005-1.035); URINE UROBILINOGEN 0.2 E.U./dl (0.2-1.0)
[2018-04-18 23:08] LABS: HEMATOCRIT 28.9 % (37.0-47.0); HEMOGLOBIN 9.1 gm/dL (12.0-15.0); MCH 19.7 pg (26.0-34.0); MCHC 31.4 g/dL (28.0-37.0); MCV 62.7 fL (80.0-100.0); RBC 4.61 mil/uL (4.20-5.00); RDW 19.6 % (10.5-14.5); WBC 15.8 thou/uL (4.0-11.0)
[2018-04-18 23:14] LABS: ANION GAP 10 mmol/L (7-16); BUN 16 mg/dL (7-18); CALCIUM 8.6 mg/dL (8.5-10.1); CHLORIDE 106 mmol/L (98-107); CO2 23 mmol/L (21-32); CREATININE 1.2 mg/dL (0.6-1.0); GLUCOSE 94 mg/dL (74-106); POTASSIUM 3.9 mmol/L (3.5-5.1); SODIUM 139 mmol/L (136-145)
[2018-04-18 23:17] LABS: BACTERIA >30 Many /HPF (None Seen); MUCUS 0-3 Light strn/LPF (None Seen); SQUAMOUS >10 Many /LPF (0-3); URINE RBC >20 Many /HPF (0-2); URINE WBC 0-5 Rare /HPF (0-5)
[2018-04-18 23:18] LABS: CASTS None Seen /LPF (None Seen); CRYSTALS None Seen /LPF (None Seen)
[2018-04-18 23:20] LABS: ALBUMIN 2.4 g/dL (3.4-5.0); DIRECT BILIRUBIN < 0.1 mg/dL (<0.1-0.3); SGOT 10 U/L (15-37); SGPT 18 U/L (30-65); TOTAL BILIRUBIN 0.3 mg/dL (<0.1-1.0); TOTAL PROTEIN 7.5 g/dL (6.4-8.2)
[2018-04-18] MEDS ORDERED: ZOFRAN ODT4 MG PO (23:49)
[2018-04-18] MEDS ORDERED: NORCO 5-325 TA1 EACH PO (23:49)
[2018-04-19 00:19] LABS: ABSOLUTE NEUTROPHILS 10.6 thou/uL (1.4-8.2); ANISOCYTOSIS 3+; HYPOCHROMASIA 2+; POLYCHROMASIA OCCASIONAL
[2018-04-19 00:20] LABS: LARGE PLATELETS RARE; PLATELET COUNT 602 thou/uL (150-400)
== END 2018-04-19 08:36 | disposition home or self-care (01) ==
LOC: ER 22:07
PROVIDERS: Emergency Medicine
DX: N93.8 Other specified abnormal uterine and vaginal bleeding (principal); D64.9 Anemia, unspecified; E66.01 Morbid (severe) obesity due to excess calories; Z68.43 Body mass index [BMI] 50.0-59.9, adult; R80.9 Proteinuria, unspecified; I10 Essential (primary) hypertension; E11.9 Type 2 diabetes mellitus without complications; J45.909 Unspecified asthma, uncomplicated; G43.909 Migraine, unspecified, not intractable, without status migrainosus; I48.91 Unspecified atrial fibrillation; Z88.0 Allergy status to penicillin; Z88.5 Allergy status to narcotic agent; Z91.040 Latex allergy status; Z91.010 Allergy to peanuts

== ENCOUNTER 2018-12-20 01:19 | Emergency (ER) | payer OTHER ==
[~2018-12-20] VITALS: Ht 180.3 cm; Wt 174.2 kg
[2018-12-20 01:36] LABS: URINE BILIRUBIN NEGATIVE (Negative); URINE BLOOD 3+ (Negative); URINE CLARITY CLEAR; URINE COLOR YELLOW; URINE GLUCOSE-RANDOM* NEGATIVE (Negative); URINE KETONES NEGATIVE (Negative); URINE LEUKOCYTES-REFLEX NEGATIVE (Negative); URINE NITRITE-REFLEX NEGATIVE (Negative); URINE PROTEIN (DIPSTICK) NEGATIVE (Negative); URINE SPECIFIC GRAVITY 1.025 (1.005-1.035); URINE UROBILINOGEN 0.2 E.U./dl (0.2-1.0)
[2018-12-20 01:45] LABS: CASTS None Seen /LPF (None Seen); MUCUS 0-3 Light strn/LPF (None Seen); SQUAMOUS 4-10 Moderate /LPF (0-3)
[2018-12-20 01:46] LABS: BACTERIA-REFLEX 1-9 Few /HPF (None Seen); CRYSTALS None Seen /LPF (None Seen); URINE RBC 3-10 Few /HPF (0-2); URINE WBC-REFLEX 0-5 Rare /HPF (0-5)
[2018-12-20] MEDS ORDERED: IBUPROFEN 800800 M1 PO (02:03)
[2018-12-20 02:39] LABS: HEMATOCRIT 27.3 % (37.0-47.0); HEMOGLOBIN 8.9 gm/dL (12.0-15.0); MCH 23.9 pg (26.0-34.0); MCHC 32.7 g/dL (28.0-37.0); MCV 73.1 fL (80.0-100.0); RBC 3.73 mil/uL (4.20-5.00); RDW 19.6 % (10.5-14.5); WBC 8.5 thou/uL (4.0-11.0)
[2018-12-20 02:51] LABS: CALCIUM 8.5 mg/dL (8.5-10.1); CREATININE 0.7 mg/dL (0.6-1.0); POTASSIUM 3.8 mmol/L (3.5-5.1)
[2018-12-20] MEDS ORDERED: NORCO 5-325 TA1 EACH PO (03:19)
[2018-12-20 04:00] VITALS: BP 140/84
--- NOTE | 2018-12-20 18:50 | EKG ---
[place] [address] [place] [address] ELECTROCARDIOGRAM REPORT Name: RADHA BOURGEOISJANICEWendy [facility] [id number] ������������������ Admission: 12/20/18 ������������������ Attend Phys: Discharge: 12/20/18 ������������������ Date of : 86 Report #: [id number] ����������������������������������������������������������������� [id number] THIS REPORT FOR: //name// [facility] ED Test Date: 2018-12-20 Test Time: 01:40:16 Pat Name: RADHA BOURGEOIS Department: Room: Gender: F Instructor Of Education: lauren : 1990 Requested By: Eric Harris Order Number: [id number] MD: Guru Cabrera Measurements Intervals [place] Rate: 85 P: 51 MD: 141 QRS: -7 QRSD: 89 T: 1 QT: 391 QTc: 465 Interpretive Statements Sinus rhythm left atrial enlargement Voltage criteria for LVH Borderline poor R-wave progression Compared to ECG 08/06/2017 16:05:02 No significant changes Electronically Signed On 12-20-2018 18:50:42 CDT by Guru Cabrera [email or web address] ��������������������������������������������� <ELECTRONICALLY SIGNED> ���������������������������������������� By: Guru Cabrera MD ��������������������������������������������� 12/20/18 1850 D: 04 014 Guru Cabrera MD /JAY
== END 2018-12-20 04:07 | disposition home or self-care (01) ==
LOC: ER 01:19
PROVIDERS: Emergency Medicine
DX: N93.8 Other specified abnormal uterine and vaginal bleeding (principal); I10 Essential (primary) hypertension; E11.9 Type 2 diabetes mellitus without complications; J45.909 Unspecified asthma, uncomplicated; G43.909 Migraine, unspecified, not intractable, without status migrainosus; I48.91 Unspecified atrial fibrillation; Z90.89 Acquired absence of other organs; Z86.2 Personal history of diseases of the blood and blood-forming organs and certain disorders involving the immune mechanism; Z88.8 Allergy status to other drugs, medicaments and biological substances; Z91.010 Allergy to peanuts; Z88.0 Allergy status to penicillin; Z91.040 Latex allergy status; Z88.5 Allergy status to narcotic agent

== ENCOUNTER 2019-01-05 13:47 | Emergency (ER) | payer OTHER ==
[~2019-01-05] VITALS: Ht 180.3 cm; Wt 165.6 kg
[2019-01-05 14:57] LABS: ABSOLUTE NEUTROPHILS 5.5 thou/uL (1.4-8.2); BASOPHILS 0.4 % (0.0-2.0); EOSINOPHILS 2.2 % (0.0-3.0); HEMATOCRIT 31.8 % (37.0-47.0); HEMOGLOBIN 10.4 gm/dL (12.0-15.0); LYMPHOCYTES 29.2 % (24.0-44.0); MCH 23.4 pg (26.0-34.0); MCHC 32.6 g/dL (28.0-37.0); MCV 71.8 fL (80.0-100.0); MONOCYTES 5.6 % (1.0-8.0); PLATELET COUNT 455 thou/uL (150-400); POLYS 62.6 % (36.0-66.0); RBC 4.43 mil/uL (4.20-5.00); RDW 18.8 % (10.5-14.5); WBC 8.9 thou/uL (4.0-11.0)
[2019-01-05 15:00] LABS: CALCIUM 9.1 mg/dL (8.5-10.1); CREATININE 0.8 mg/dL (0.6-1.0)
[2019-01-05 15:06] LABS: ALBUMIN 3.6 g/dL (3.4-5.0); TOTAL BILIRUBIN 0.3 mg/dL (<0.1-1.0); TOTAL PROTEIN 8.1 g/dL (6.4-8.2)
[2019-01-05 15:25] LABS: ANISOCYTOSIS 2+; HYPOCHROMASIA 1+
[2019-01-05 15:26] LABS: MICROCYTES 1+; PLATELET ESTIMATE NORMAL
[2019-01-05 15:30] LABS: URINE BILIRUBIN NEGATIVE (Negative); URINE BLOOD 1+ (Negative); URINE CLARITY CLEAR; URINE COLOR YELLOW; URINE GLUCOSE-RANDOM* NEGATIVE (Negative); URINE KETONES NEGATIVE (Negative); URINE LEUKOCYTES-REFLEX NEGATIVE (Negative); URINE NITRITE-REFLEX NEGATIVE (Negative); URINE PROTEIN (DIPSTICK) NEGATIVE (Negative); URINE UROBILINOGEN 0.2 E.U./dl (0.2-1.0)
[2019-01-05 15:43] LABS: BACTERIA-REFLEX 1-9 Few /HPF (None Seen); CASTS None Seen /LPF (None Seen); CRYSTALS None Seen /LPF (None Seen); SQUAMOUS 0-3 Few /LPF (0-3); URINE RBC 0-2 Rare /HPF (0-2); URINE WBC-REFLEX None Seen /HPF (0-5)
[2019-01-05 15:54] VITALS: BP 134/77
== END 2019-01-05 15:55 | disposition home or self-care (01) ==
LOC: ER 13:47
PROVIDERS: Physician Assistant
DX: N93.9 Abnormal uterine and vaginal bleeding, unspecified (principal); I10 Essential (primary) hypertension; E11.9 Type 2 diabetes mellitus without complications; J45.909 Unspecified asthma, uncomplicated; G43.909 Migraine, unspecified, not intractable, without status migrainosus; I48.91 Unspecified atrial fibrillation; Z88.0 Allergy status to penicillin; Z88.5 Allergy status to narcotic agent; Z88.8 Allergy status to other drugs, medicaments and biological substances; Z91.040 Latex allergy status; Z91.010 Allergy to peanuts

== ENCOUNTER 2019-01-17 13:24 | Emergency (ER) | payer OTHER ==
[~2019-01-17] VITALS: Ht 180.3 cm; Wt 165.6 kg
[2019-01-17] MEDS ORDERED: VENTOLIN HFA 1818 GM INH (14:27)
[2019-01-17] MEDS ORDERED: ADVAIR HFA 230M12 GM INH (14:27)
[2019-01-17 14:36] VITALS: BP 143/79
--- NOTE | 2019-01-18 10:25 | EKG ---
[place] [address] [facility] [place] [address] ELECTROCARDIOGRAM REPORT Name: RADHA BOURGEOISJANICEWendy [facility] [id number] ������������������ Admission: 01/17/19 ������������������ Attend Phys: Discharge: 01/17/19 ������������������ Date of : 86 Report #: [id number] ����������������������������������������������������������������� [id number] THIS REPORT FOR: //name// [facility] ED Test Date: 2019-01-17 Test Time: 13:46:34 Pat Name: RADHA BOURGEOIS Department: Room: Gender: F Instructor Industrial Design: PERRY : 1990 Requested By: Lia Mills Order Number: [id number] MD: Alex Leggett Measurements Intervals [place] Rate: 83 P: 47 [place]: 145 QRS: -3 QRSD: 96 T: -2 QT: 397 QTc: 467 Interpretive Statements Sinus rhythm Left ventricular hypertrophy Borderline T abnormalities, diffuse leads Compared to ECG 12/20/2018 01:40:16 T-wave abnormality now present Electronically Signed On 01-18-2019 10:25:23 CDT by Alex Leggett [email or web address] ��������������������������������������������� <ELECTRONICALLY SIGNED> ���������������������������������������� By: Alex Leggett MD, [facility] ��������������������������������������������� 01/18/19 1025 1346 45 Alex Leggett MD, [facility] /EPI
== END 2019-01-17 14:37 | disposition home or self-care (01) ==
LOC: ER 13:24
DX: J45.909 Unspecified asthma, uncomplicated (principal); I10 Essential (primary) hypertension; E11.9 Type 2 diabetes mellitus without complications; G43.909 Migraine, unspecified, not intractable, without status migrainosus; I48.91 Unspecified atrial fibrillation; Z88.8 Allergy status to other drugs, medicaments and biological substances; Z90.89 Acquired absence of other organs; Z91.010 Allergy to peanuts; Z86.2 Personal history of diseases of the blood and blood-forming organs and certain disorders involving the immune mechanism; Z88.0 Allergy status to penicillin; Z91.040 Latex allergy status; Z88.5 Allergy status to narcotic agent

== ENCOUNTER 2019-01-27 18:51 | Emergency (ER) | payer OTHER ==
[~2019-01-27] VITALS: Ht 180.3 cm; Wt 179.6 kg
[~2019-01-27 18:51] MED LIST changes: +ADVAIR HFA 230M12 GM INH
[2019-01-27] MEDS ORDERED: ONDANSETRON HCL4 M2 PO (19:54)
[2019-01-27] MEDS ORDERED: NORCO 5-325 TA1 EACH PO (19:54)
[2019-01-27] MEDS ORDERED: CLEOCIN HCL150 MG PO (19:54)
[2019-01-27] MEDS ORDERED: MAGIC MOUTHWASH SWISH&SPIT (19:54)
[2019-01-27 20:21] VITALS: BP 137/86
== END 2019-01-27 20:21 | disposition home or self-care (01) ==
LOC: ER 18:51
DX: K08.89 Other specified disorders of teeth and supporting structures (principal); G43.909 Migraine, unspecified, not intractable, without status migrainosus; I10 Essential (primary) hypertension; E11.9 Type 2 diabetes mellitus without complications; J45.909 Unspecified asthma, uncomplicated; I48.91 Unspecified atrial fibrillation; Z88.0 Allergy status to penicillin; Z88.5 Allergy status to narcotic agent; Z88.8 Allergy status to other drugs, medicaments and biological substances; Z91.040 Latex allergy status; Z91.010 Allergy to peanuts

== ENCOUNTER 2019-02-02 22:33 | Emergency (ER) | payer OTHER ==
[~2019-02-02] VITALS: Ht 180.3 cm; Wt 175.1 kg
[~2019-02-02 22:33] MED LIST changes: +MAGIC MOUTHWASH SWISH&SPIT
[2019-02-02] MEDS ORDERED: NORCO 5-325 TA1 EACH PO (23:50)
[2019-02-02] MEDS ORDERED: NAPROSYN500 MG PO (23:50)
[2019-02-03 01:40] VITALS: BP 138/70
== END 2019-02-03 01:30 | disposition home or self-care (01) ==
LOC: ER 22:33
DX: K08.89 Other specified disorders of teeth and supporting structures (principal); I10 Essential (primary) hypertension; E11.9 Type 2 diabetes mellitus without complications; J45.909 Unspecified asthma, uncomplicated; G43.909 Migraine, unspecified, not intractable, without status migrainosus; I48.91 Unspecified atrial fibrillation; Z88.0 Allergy status to penicillin; Z88.5 Allergy status to narcotic agent; Z91.040 Latex allergy status; Z91.010 Allergy to peanuts

== ENCOUNTER 2019-02-05 13:08 | Emergency (ER) | payer OTHER ==
[~2019-02-05] VITALS: Ht 180.3 cm; Wt 147.4 kg
[2019-02-05 13:40] LABS: URINE BILIRUBIN NEGATIVE (Negative); URINE BLOOD 3+ (Negative); URINE CLARITY CLEAR; URINE COLOR YELLOW; URINE GLUCOSE-RANDOM* NEGATIVE (Negative); URINE KETONES NEGATIVE (Negative); URINE LEUKOCYTES-REFLEX NEGATIVE (Negative); URINE NITRITE-REFLEX NEGATIVE (Negative); URINE PROTEIN (DIPSTICK) NEGATIVE (Negative); URINE UROBILINOGEN 0.2 E.U./dl (0.2-1.0)
[2019-02-05 13:46] LABS: ABSOLUTE NEUTROPHILS 5.6 thou/uL (1.4-8.2); BASOPHILS 0.3 % (0.0-2.0); EOSINOPHILS 0.9 % (0.0-3.0); HEMOGLOBIN 8.9 gm/dL (12.0-15.0); LYMPHOCYTES 24.9 % (24.0-44.0); MCH 22.8 pg (26.0-34.0); MCHC 31.7 g/dL (28.0-37.0); MCV 72.1 fL (80.0-100.0); MONOCYTES 4.6 % (1.0-8.0); PLATELET COUNT 400 thou/uL (150-400); POLYS 69.3 % (36.0-66.0); RBC 3.89 mil/uL (4.20-5.00); RDW 17.8 % (10.5-14.5); WBC 8.1 thou/uL (4.0-11.0)
[2019-02-05 13:58] LABS: CALCIUM 8.4 mg/dL (8.5-10.1); CREATININE 0.6 mg/dL (0.6-1.0); POTASSIUM 3.8 mmol/L (3.5-5.1)
[2019-02-05 14:04] LABS: ALBUMIN 3.3 g/dL (3.4-5.0); TOTAL BILIRUBIN 0.4 mg/dL (<0.1-1.0); TOTAL PROTEIN 7.1 g/dL (6.4-8.2)
[2019-02-05 14:21] LABS: BACTERIA-REFLEX 1-9 Few /HPF (None Seen); CASTS None Seen /LPF (None Seen); CRYSTALS None Seen /LPF (None Seen); SQUAMOUS >10 Many /LPF (0-3); URINE RBC 0-2 Rare /HPF (0-2); URINE WBC-REFLEX 0-5 Rare /HPF (0-5)
[2019-02-05 14:28] LABS: LIPASE 91 U/L (73-393); TROPONIN-I <0.06 ng/mL (<0.06)
[2019-02-05 14:46] LABS: ANISOCYTOSIS 1+; HYPOCHROMASIA 2+; MICROCYTES 2+; PLATELET ESTIMATE NORMAL
[2019-02-05] MEDS ORDERED: TYLENOL325 MG PO (15:12)
[2019-02-05] MEDS ORDERED: PHENERGAN 25 MG25 M1 PO (15:43)
[2019-02-05] MEDS ORDERED: BENTYL 20 MG TA20 M1 PO (15:43)
[2019-02-05] MEDS ORDERED: PROBIOTIC1 EAC1 PO (15:43)
[2019-02-05 16:30] VITALS: BP 162/63
--- NOTE | 2019-02-06 09:27 | EKG ---
[place] [address] [facility] [place] [address] ELECTROCARDIOGRAM REPORT Name: RADHA BOURGEOISJANICEWendy [facility] [id number] ������������������ Admission: 02/05/19 ������������������ Attend Phys: Discharge: 02/05/19 ������������������ Date of : 86 Report #: [id number] ����������������������������������������������������������������� [id number] THIS REPORT FOR: //name// [facility] ED Test Date: 2019-02-05 Test Time: 13:14:11 Pat Name: RADHA BOURGEOIS Department: Room: Gender: F Risk Management Consultant: SONI : 1990 Requested By: Angely Briggs Order Number: [id number] MD: Alex Leggett Measurements Intervals [place] Rate: 65 P: 32 SD: 142 QRS: 3 QRSD: 92 T: 5 QT: 426 QTc: 443 Interpretive Statements Sinus rhythm No significant abnormality Compared to ECG 01/17/2019 13:46:34 T-wave abnormality no longer present Electronically Signed On 02-06-2019 9:27:17 CDT by Alex Leggett [email or web address] ��������������������������������������������� <ELECTRONICALLY SIGNED> ���������������������������������������� By: Alex Leggett MD, [facility] ��������������������������������������������� 02/06/19 0927 1314 1314 Alxe Leggett MD, FACC /EPI
== END 2019-02-05 16:00 | disposition home or self-care (01) ==
LOC: ER 13:08
PROVIDERS: Nurse Practitioner Family
DX: R19.7 Diarrhea, unspecified (principal); B34.9 Viral infection, unspecified; I10 Essential (primary) hypertension; E11.9 Type 2 diabetes mellitus without complications; J45.909 Unspecified asthma, uncomplicated; G43.909 Migraine, unspecified, not intractable, without status migrainosus; I48.91 Unspecified atrial fibrillation; Z88.0 Allergy status to penicillin; Z88.5 Allergy status to narcotic agent; Z91.040 Latex allergy status; Z91.010 Allergy to peanuts

== ENCOUNTER 2019-02-11 23:04 | Emergency (ER) | payer OTHER ==
[~2019-02-11] VITALS: Ht 180.3 cm; Wt 147.4 kg
[~2019-02-11 23:04] MED LIST changes: +BENTYL 20 MG TA20 M1 PO; +PROBIOTIC1 EAC1 PO; +TYLENOL325 MG PO
[2019-02-11 23:19] VITALS: BP 140/76
[2019-02-11] MEDS ORDERED: PROVERA10 MG PO (23:25)
[2019-02-12 00:11] LABS: ABSOLUTE NEUTROPHILS 5.9 thou/uL (1.4-8.2); BASOPHILS 0.5 % (0.0-2.0); EOSINOPHILS 1.9 % (0.0-3.0); HEMATOCRIT 28.8 % (37.0-47.0); HEMOGLOBIN 9.2 gm/dL (12.0-15.0); LYMPHOCYTES 29.8 % (24.0-44.0); MCHC 32.1 g/dL (28.0-37.0); MCV 71.7 fL (80.0-100.0); MONOCYTES 4.9 % (1.0-8.0); PLATELET COUNT 421 thou/uL (150-400); POLYS 62.9 % (36.0-66.0); RBC 4.01 mil/uL (4.20-5.00); RDW 17.3 % (10.5-14.5); WBC 9.4 thou/uL (4.0-11.0)
[2019-02-12 00:22] LABS: CALCIUM 8.6 mg/dL (8.5-10.1); CREATININE 0.8 mg/dL (0.6-1.0); POTASSIUM 3.7 mmol/L (3.5-5.1)
[2019-02-12 00:27] LABS: ALBUMIN 3.5 g/dL (3.4-5.0); TOTAL BILIRUBIN 0.2 mg/dL (<0.1-1.0); TOTAL PROTEIN 7.7 g/dL (6.4-8.2)
== END 2019-02-12 00:26 | disposition home or self-care (01) ==
LOC: ER 23:04
PROVIDERS: Emergency Medicine
DX: N93.8 Other specified abnormal uterine and vaginal bleeding (principal); I10 Essential (primary) hypertension; E11.9 Type 2 diabetes mellitus without complications; J45.909 Unspecified asthma, uncomplicated; G43.909 Migraine, unspecified, not intractable, without status migrainosus; I48.91 Unspecified atrial fibrillation; Z88.0 Allergy status to penicillin; Z88.5 Allergy status to narcotic agent; Z91.010 Allergy to peanuts; Z91.040 Latex allergy status

== ENCOUNTER 2019-02-12 16:29 | Emergency (ER) | payer OTHER ==
[~2019-02-12] VITALS: Ht 180.3 cm; Wt 157.8 kg
[2019-02-12 18:03] LABS: ABSOLUTE NEUTROPHILS 5.1 thou/uL (1.4-8.2); BASOPHILS 1.1 % (0.0-2.0); EOSINOPHILS 1.6 % (0.0-3.0); HEMATOCRIT 28.1 % (37.0-47.0); MCHC 32.1 g/dL (28.0-37.0); MCV 71.5 fL (80.0-100.0); MONOCYTES 6.1 % (1.0-8.0); PLATELET COUNT 401 thou/uL (150-400); POLYS 63.2 % (36.0-66.0); RBC 3.94 mil/uL (4.20-5.00); RDW 18.1 % (10.5-14.5)
[2019-02-12 18:10] LABS: CALCIUM 8.8 mg/dL (8.5-10.1); CREATININE 0.7 mg/dL (0.6-1.0); POTASSIUM 4.1 mmol/L (3.5-5.1)
[2019-02-12 18:47] VITALS: BP 121/69
== END 2019-02-12 18:49 | disposition home or self-care (01) ==
LOC: ER 16:29
PROVIDERS: Physician Assistant
DX: N93.8 Other specified abnormal uterine and vaginal bleeding (principal); I10 Essential (primary) hypertension; E11.9 Type 2 diabetes mellitus without complications; J45.909 Unspecified asthma, uncomplicated; G43.909 Migraine, unspecified, not intractable, without status migrainosus; I48.91 Unspecified atrial fibrillation; Z88.0 Allergy status to penicillin; Z88.5 Allergy status to narcotic agent; Z91.040 Latex allergy status; Z88.8 Allergy status to other drugs, medicaments and biological substances; Z86.2 Personal history of diseases of the blood and blood-forming organs and certain disorders involving the immune mechanism; Z91.010 Allergy to peanuts

== ENCOUNTER 2019-04-02 15:33 | Emergency (ER) | payer OTHER ==
[~2019-04-02] VITALS: Ht 180.3 cm; Wt 180.1 kg
[2019-04-02 15:40] VITALS: BP 111/44
[2019-04-02 17:05] LABS: HEMATOCRIT 31.5 % (37.0-47.0); HEMOGLOBIN 9.7 gm/dL (12.0-15.0); MCH 21.7 pg (26.0-34.0); MCHC 30.8 g/dL (28.0-37.0); MCV 70.2 fL (80.0-100.0); RBC 4.49 mil/uL (4.20-5.00); WBC 9.4 thou/uL (4.0-11.0)
[2019-04-02] MEDS ORDERED: TORADOL 10 MG T10 MG PO (17:58)
== END 2019-04-02 18:18 | disposition home or self-care (01) ==
LOC: ER 15:33
PROVIDERS: Emergency Medicine
DX: N93.8 Other specified abnormal uterine and vaginal bleeding (principal); Z88.8 Allergy status to other drugs, medicaments and biological substances; Z88.0 Allergy status to penicillin; Z91.040 Latex allergy status; Z88.5 Allergy status to narcotic agent; Z91.010 Allergy to peanuts; Z79.899 Other long term (current) drug therapy

== ENCOUNTER 2019-04-10 13:10 | Emergency (ER) | payer OTHER ==
[~2019-04-10] VITALS: Ht 180.3 cm; Wt 156.5 kg
[2019-04-10 13:38] LABS: URINE BILIRUBIN NEGATIVE (Negative); URINE BLOOD 3+ (Negative); URINE COLOR YELLOW; URINE GLUCOSE-RANDOM* NEGATIVE (Negative); URINE KETONES NEGATIVE (Negative); URINE LEUKOCYTES-REFLEX NEGATIVE (Negative); URINE NITRITE-REFLEX NEGATIVE (Negative); URINE PROTEIN (DIPSTICK) NEGATIVE (Negative); URINE SPECIFIC GRAVITY 1.015 (1.005-1.035); URINE UROBILINOGEN 0.2 E.U./dl (0.2-1.0)
[2019-04-10 13:40] LABS: URINE CLARITY SL HAZY
[2019-04-10 13:49] LABS: BACTERIA-REFLEX 1-9 Few /HPF (None Seen); CASTS None Seen /LPF (None Seen); CRYSTALS None Seen /LPF (None Seen); SQUAMOUS 0-3 Few /LPF (0-3); URINE RBC >20 Many /HPF (0-2); URINE WBC-REFLEX 0-5 Rare /HPF (0-5)
[2019-04-10 14:34] LABS: HEMATOCRIT 30.3 % (37.0-47.0); HEMOGLOBIN 9.6 gm/dL (12.0-15.0); MCH 21.6 pg (26.0-34.0); MCHC 31.6 g/dL (28.0-37.0); MCV 68.6 fL (80.0-100.0); RBC 4.43 mil/uL (4.20-5.00); RDW 18.7 % (10.5-14.5); WBC 9.4 thou/uL (4.0-11.0)
[2019-04-10] MEDS ORDERED: MACROBID 100 M100 M1 PO (15:22)
[2019-04-10] MEDS ORDERED: TORADOL 10 MG T10 MG PO (15:22)
[2019-04-10] MEDS ORDERED: MEDROXYPROGESTE10 MG PO (15:23)
[2019-04-10 15:38] VITALS: BP 132/76
== END 2019-04-10 15:40 | disposition home or self-care (01) ==
LOC: ER 13:10
PROVIDERS: Physician Assistant
DX: D64.9 Anemia, unspecified (principal); N39.0 Urinary tract infection, site not specified; N93.8 Other specified abnormal uterine and vaginal bleeding; I10 Essential (primary) hypertension; E11.9 Type 2 diabetes mellitus without complications; J45.909 Unspecified asthma, uncomplicated; G43.909 Migraine, unspecified, not intractable, without status migrainosus; I48.91 Unspecified atrial fibrillation; Z88.0 Allergy status to penicillin; Z88.5 Allergy status to narcotic agent; Z91.040 Latex allergy status; Z91.010 Allergy to peanuts; Z88.8 Allergy status to other drugs, medicaments and biological substances

== ENCOUNTER 2019-06-22 20:08 | Emergency (ER) | payer OTHER ==
[~2019-06-22] VITALS: Ht 180.3 cm; Wt 156.5 kg
[2019-06-22 22:52] VITALS: BP 138/92
== END 2019-06-22 22:56 | disposition home or self-care (01) ==
LOC: ER 20:08
DX: J02.9 Acute pharyngitis, unspecified (principal); I10 Essential (primary) hypertension; E11.9 Type 2 diabetes mellitus without complications; J45.909 Unspecified asthma, uncomplicated; G43.909 Migraine, unspecified, not intractable, without status migrainosus; I48.91 Unspecified atrial fibrillation; Z86.2 Personal history of diseases of the blood and blood-forming organs and certain disorders involving the immune mechanism; Z88.8 Allergy status to other drugs, medicaments and biological substances; Z91.010 Allergy to peanuts; Z88.0 Allergy status to penicillin; Z91.040 Latex allergy status; Z88.5 Allergy status to narcotic agent

== ENCOUNTER 2019-09-26 19:31 | Emergency (ER) | payer OTHER ==
[~2019-09-26] VITALS: Ht 180.3 cm; Wt 179.2 kg
[2019-09-26] MEDS ORDERED: FLAGYL 250 MG250 MG PO (19:57)
[2019-09-26] MEDS ORDERED: NAPROSYN500 MG PO (20:20)
[2019-09-26] MEDS ORDERED: NORCO 5-325 TA1 EAC1 PO (20:20)
[2019-09-26] MEDS ORDERED: ONDANSETRON HCL4 M2 PO (20:55)
[2019-09-26 21:35] VITALS: BP 133/88
== END 2019-09-26 21:35 | disposition home or self-care (01) ==
LOC: ER 19:31
DX: K08.89 Other specified disorders of teeth and supporting structures (principal); I10 Essential (primary) hypertension; I48.91 Unspecified atrial fibrillation; E11.9 Type 2 diabetes mellitus without complications; J45.909 Unspecified asthma, uncomplicated; G43.909 Migraine, unspecified, not intractable, without status migrainosus; Z86.2 Personal history of diseases of the blood and blood-forming organs and certain disorders involving the immune mechanism; Z90.49 Acquired absence of other specified parts of digestive tract; Z91.010 Allergy to peanuts; Z91.040 Latex allergy status; Z88.0 Allergy status to penicillin; Z88.6 Allergy status to analgesic agent; Z88.8 Allergy status to other drugs, medicaments and biological substances

== ENCOUNTER 2019-10-31 18:48 | Emergency (ER) | payer OTHER ==
[~2019-10-31] VITALS: Ht 172.7 cm; Wt 180.1 kg
[~2019-10-31 18:48] MED LIST changes: +FLAGYL 250 MG250 MG PO; +NORCO 5-325 TA1 EAC1 PO
[2019-10-31 19:51] LABS: URINE BILIRUBIN NEGATIVE (Negative); URINE BLOOD 3+ (Negative); URINE CLARITY CLEAR; URINE COLOR YELLOW; URINE GLUCOSE-RANDOM* NEGATIVE (Negative); URINE KETONES NEGATIVE (Negative); URINE NITRITE-REFLEX NEGATIVE (Negative); URINE PROTEIN (DIPSTICK) NEGATIVE (Negative); URINE SPECIFIC GRAVITY >= 1.030 (1.005-1.035); URINE UROBILINOGEN 0.2 E.U./dl (0.2-1.0)
[2019-10-31 19:53] LABS: URINE LEUKOCYTES-REFLEX 2+ (Negative)
[2019-10-31 19:59] LABS: SQUAMOUS >10 Many /LPF (0-3); URINE WBC-REFLEX >25 Many /HPF (0-5)
[2019-10-31 20:00] LABS: ABSOLUTE NEUTROPHILS 7.1 thou/uL (1.4-8.2); BASOPHILS 0.6 % (0.0-2.0); EOSINOPHILS 0.9 % (0.0-3.0); HEMATOCRIT 32.1 % (37.0-47.0); LYMPHOCYTES 21.4 % (24.0-44.0); MCH 22.7 pg (26.0-34.0); MCHC 31.2 g/dL (28.0-37.0); MCV 72.7 fL (80.0-100.0); MONOCYTES 5.3 % (1.0-8.0); PLATELET COUNT 391 thou/uL (150-400); POLYS 71.8 % (36.0-66.0); RBC 4.42 mil/uL (4.20-5.00); RDW 19.5 % (10.5-14.5); WBC 9.9 thou/uL (4.0-11.0)
[2019-10-31 20:00] LABS: MUCUS 0-3 Light strn/LPF (None Seen); URINE RBC >20 Many /HPF (0-2)
[2019-10-31 20:01] LABS: CRYSTALS None Seen /LPF (None Seen)
[2019-10-31 20:02] LABS: CASTS None Seen /LPF (None Seen)
[2019-10-31 20:15] LABS: CALCIUM 8.6 mg/dL (8.5-10.1); CREATININE 0.8 mg/dL (0.6-1.0); MAGNESIUM 1.8 mg/dL (1.8-2.4); POTASSIUM 4.5 mmol/L (3.5-5.1)
[2019-10-31 20:30] LABS: HYPOCHROMASIA 3+; MICROCYTES 3+
[2019-10-31] MEDS ORDERED: KEFLEX500 M1 PO (20:37)
[2019-10-31 22:07] VITALS: BP 115/67
--- NOTE | 2019-11-02 08:35 | EKG ---
[facility] [place] [address] ELECTROCARDIOGRAM REPORT Name: RADHA BOURGEOIS Room #: DEP [facility]#: [id number] Admission: 10/31/19 Attend Phys: Discharge: 10/31/19 Date of : 86 Report #: [id number] THIS REPORT FOR: cc: FAM - Family physician unknown FAM - Family physician unknown Alex Leggett MD [facility] THIS REPORT FOR: //name// [facility] ED Test Date: 2019-10-31 Test Time: 19:18:34 Pat Name: RADHA BOURGEOIS Department: Room: Gender: F Tobacco Sampler: jareth soria : 1990 Requested By: Eric Harris Order Number: [id number] MD: Alex Leggett Measurements Intervals [place] Rate: 148 P: 29 [place]: 96 QRS: 47 QRSD: 79 T: 58 QT: 354 QTc: 556 Interpretive Statements Sinus tachycardia Borderline repolarization abnormality Prolonged QT interval Baseline wander in lead(s) I Compared to ECG 02/05/2019 13:14:11 Prolonged QT interval now present Heart rate has increased Electronically Signed On 11-02-2019 8:34:50 CANDY CUTTER MACHINE by Alex Leggett [email or web address] <ELECTRONICALLY SIGNED> By: Alex Leggett MD, [facility] 11/02/19 0834 17 17 Alex Leggett MD, [facility] /EPI
== END 2019-10-31 22:15 | disposition home or self-care (01) ==
LOC: ER 18:48
PROVIDERS: Emergency Medicine
DX: R00.0 Tachycardia, unspecified (principal); I10 Essential (primary) hypertension; I48.91 Unspecified atrial fibrillation; E11.9 Type 2 diabetes mellitus without complications; J45.909 Unspecified asthma, uncomplicated; G43.909 Migraine, unspecified, not intractable, without status migrainosus; Z90.49 Acquired absence of other specified parts of digestive tract; Z86.2 Personal history of diseases of the blood and blood-forming organs and certain disorders involving the immune mechanism; Z91.010 Allergy to peanuts; Z91.040 Latex allergy status; Z88.0 Allergy status to penicillin; Z88.6 Allergy status to analgesic agent; Z88.8 Allergy status to other drugs, medicaments and biological substances

== ENCOUNTER 2019-12-08 16:26 | Emergency (ER) | payer OTHER ==
[~2019-12-08] VITALS: Ht 180.3 cm; Wt 192.8 kg
[~2019-12-08 16:26] MED LIST changes: +KEFLEX500 M1 PO
[2019-12-08] MEDS ORDERED: PREDNISONE 20 M20 M1 PO (16:40)
[2019-12-08] MEDS ORDERED: NORCO 5-325 TA1 EAC1 PO ×2 (16:40→18:11)
[2019-12-08] MEDS ORDERED: PROAIR HFA8.5 GM INH (16:40)
[2019-12-08 16:54] LABS: ABSOLUTE NEUTROPHILS 4.6 thou/uL (1.4-8.2); BASOPHILS 0.3 % (0.0-2.0); EOSINOPHILS 0.8 % (0.0-3.0); HEMATOCRIT 32.2 % (37.0-47.0); HEMOGLOBIN 10.3 gm/dL (12.0-15.0); LYMPHOCYTES 27.4 % (24.0-44.0); MCHC 31.9 g/dL (28.0-37.0); MCV 72.3 fL (80.0-100.0); MONOCYTES 5.5 % (1.0-8.0); PLATELET COUNT 385 thou/uL (150-400); RBC 4.45 mil/uL (4.20-5.00); WBC 6.9 thou/uL (4.0-11.0)
[2019-12-08 17:04] LABS: CALCIUM 9.1 mg/dL (8.5-10.1); CREATININE 0.9 mg/dL (0.6-1.0)
[2019-12-08 17:07] LABS: ALBUMIN 3.3 g/dL (3.4-5.0); TOTAL BILIRUBIN 0.4 mg/dL (<0.1-1.0); TOTAL PROTEIN 7.4 g/dL (6.4-8.2)
[2019-12-08 17:19] LABS: URINE BLOOD 3+ (Negative); URINE CLARITY CLOUDY; URINE GLUCOSE-RANDOM* NEGATIVE (Negative); URINE KETONES TRACE (Negative); URINE LEUKOCYTES-REFLEX NEGATIVE (Negative); URINE NITRITE-REFLEX NEGATIVE (Negative); URINE PROTEIN (DIPSTICK) 2+ (Negative); URINE SPECIFIC GRAVITY >= 1.030 (1.005-1.035)
[2019-12-08 17:22] LABS: ICTOTEST (BILI CONFIRMATORY) Negative (Negative); URINE BILIRUBIN NEGATIVE (Negative); URINE COLOR RED
[2019-12-08 17:31] LABS: SQUAMOUS 4-10 Moderate /LPF (0-3); URINE RBC >20 Many /HPF (0-2)
[2019-12-08 17:32] LABS: CASTS None Seen /LPF (None Seen); CRYSTALS None Seen /LPF (None Seen); URINE WBC-REFLEX 0-5 Rare /HPF (0-5)
[2019-12-08 17:42] LABS: ANISOCYTOSIS 2+; HYPOCHROMASIA 1+; MICROCYTES 1+; PLATELET ESTIMATE NORMAL
[2019-12-08] MEDS ORDERED: PROVERA10 MG PO (18:24)
[2019-12-08 18:31] VITALS: BP 122/77
== END 2019-12-08 18:35 | disposition home or self-care (01) ==
LOC: ER 16:26
PROVIDERS: Physician Assistant
DX: D64.9 Anemia, unspecified (principal); N93.8 Other specified abnormal uterine and vaginal bleeding; R42 Dizziness and giddiness; I10 Essential (primary) hypertension; I48.91 Unspecified atrial fibrillation; E11.9 Type 2 diabetes mellitus without complications; J45.909 Unspecified asthma, uncomplicated; G43.909 Migraine, unspecified, not intractable, without status migrainosus; Z90.49 Acquired absence of other specified parts of digestive tract; Z91.010 Allergy to peanuts; Z91.040 Latex allergy status; Z88.0 Allergy status to penicillin; Z88.6 Allergy status to analgesic agent; Z88.8 Allergy status to other drugs, medicaments and biological substances

== ENCOUNTER 2019-12-20 08:26 | Emergency (ER) | payer OTHER ==
[~2019-12-20] VITALS: Ht 180.3 cm; Wt 193.7 kg
[2019-12-20] MEDS ORDERED: ASA81BEC PO (08:55)
[2019-12-20 09:21] LABS: ABSOLUTE NEUTROPHILS 4.3 thou/uL (1.4-8.2); BASOPHILS 0.5 % (0.0-2.0); EOSINOPHILS 1.1 % (0.0-3.0); HEMATOCRIT 30.5 % (37.0-47.0); HEMOGLOBIN 9.7 gm/dL (12.0-15.0); MCHC 31.7 g/dL (28.0-37.0); MCV 72.4 fL (80.0-100.0); MONOCYTES 6.5 % (1.0-8.0); PLATELET COUNT 362 thou/uL (150-400); POLYS 62.9 % (36.0-66.0); RBC 4.22 mil/uL (4.20-5.00); RDW 18.8 % (10.5-14.5); WBC 6.8 thou/uL (4.0-11.0)
[2019-12-20 09:33] LABS: ANION GAP 13 mmol/L (7-16); BUN 11 mg/dL (7-18); CALCIUM 8.8 mg/dL (8.5-10.1); CHLORIDE 103 mmol/L (98-107); CO2 21 mmol/L (21-32); CREATININE 0.8 mg/dL (0.6-1.0); GLUCOSE 103 mg/dL (74-106); POTASSIUM 3.6 mmol/L (3.5-5.1); SODIUM 137 mmol/L (136-145)
[2019-12-20 09:41] LABS: TROPONIN-I <0.06 ng/mL (<0.06)
--- NOTE | 2019-12-20 13:08 | EKG ---
[facility] [place] [address] ELECTROCARDIOGRAM REPORT Name: RADHA BOURGEOIS Room #: [facility].#: [id number] Admission: 12/20/19 Attend Phys: Discharge: Date of : 86 Report #: [id number] THIS REPORT FOR: cc: Johnson Busby MD, Jinming MD Couchonnal, Luis F. MD ~ THIS REPORT FOR: //name// [facility] ED Test Date: 2019-12-20 Test Time: 08:48:35 Pat Name: RADHA BOURGEOIS Department: Room: Gender: F Table Games Floor Supervisor: ESHEETS : 1990 Requested By: Lizett Donahue Order Number: [id number] MD: Gustavo Munoz Measurements Intervals [place] Rate: 92 P: 64 NM: 151 QRS: 1 QRSD: 88 T: 3 QT: 370 QTc: 458 Interpretive Statements Sinus rhythm Probable left atrial enlargement Probable left ventricular hypertrophy Compared to ECG 10/31/2019 19:18:34 Sinus tachycardia no longer present Prolonged QT interval no longer present Electronically Signed On 12-20-2019 13:07:05 CDT by Gustavo Munoz [email or web address] <ELECTRONICALLY SIGNED> By: Gustavo Munoz MD 12/20/19 1307 0848 0848 Gustavo Munoz MD /EPI
--- NOTE | 2019-12-20 14:19 | NUR ---
CONSULTED TO PLACE A PIV FOR CT CONTRAST, THIS PATIENT HAS VEINS THAT ARE 2-4 CM DEEP AND REQUIRED MIDLINE ACCESS. A #4F POWER INJECTABLE MIDLINE WAS PLACED PER HOSPITAL POLICY. LINE SECURED AND RELEASED FOR USE
[2019-12-20 15:05] VITALS: BP 125/80
== END 2019-12-20 15:06 | disposition home or self-care (01) ==
LOC: ER 08:26
PROVIDERS: Emergency Medicine Emergency Medical Services
DX: R06.00 Dyspnea, unspecified (principal); I10 Essential (primary) hypertension; I48.91 Unspecified atrial fibrillation; E11.9 Type 2 diabetes mellitus without complications; E66.9 Obesity, unspecified; J45.909 Unspecified asthma, uncomplicated; G43.909 Migraine, unspecified, not intractable, without status migrainosus; Z68.43 Body mass index [BMI] 50.0-59.9, adult; Z86.2 Personal history of diseases of the blood and blood-forming organs and certain disorders involving the immune mechanism; Z90.49 Acquired absence of other specified parts of digestive tract; Z91.010 Allergy to peanuts; Z91.040 Latex allergy status; Z88.0 Allergy status to penicillin; Z88.6 Allergy status to analgesic agent; Z88.8 Allergy status to other drugs, medicaments and biological substances
CPT/HCPCS: 27000

== ENCOUNTER 2020-03-08 19:17 | Emergency (ER) | payer OTHER ==
[~2020-03-08] VITALS: Ht 180.3 cm; Wt 192.8 kg
[~2020-03-08 19:17] MED LIST changes: +ASA81BEC PO
[2020-03-08 19:35] LABS: ABSOLUTE NEUTROPHILS 7.7 thou/uL (1.4-8.2); BASOPHILS 0.2 % (0.0-2.0); EOSINOPHILS 0.9 % (0.0-3.0); HEMATOCRIT 31.4 % (37.0-47.0); HEMOGLOBIN 10.1 gm/dL (12.0-15.0); LYMPHOCYTES 20.7 % (24.0-44.0); MCH 23.3 pg (26.0-34.0); MCHC 32.1 g/dL (28.0-37.0); MCV 72.6 fL (80.0-100.0); MONOCYTES 5.5 % (1.0-8.0); PLATELET COUNT 404 thou/uL (150-400); POLYS 72.7 % (36.0-66.0); RBC 4.33 mil/uL (4.20-5.00); RDW 19.3 % (10.5-14.5); WBC 10.6 thou/uL (4.0-11.0)
[2020-03-08 19:45] LABS: ANION GAP 13 mmol/L (7-16); BUN 11 mg/dL (7-18); CALCIUM 8.5 mg/dL (8.5-10.1); CHLORIDE 105 mmol/L (98-107); CO2 19 mmol/L (21-32); CREATININE 0.9 mg/dL (0.6-1.0); GLUCOSE 102 mg/dL (74-106); POTASSIUM 3.3 mmol/L (3.5-5.1); SODIUM 137 mmol/L (136-145)
[2020-03-08 19:55] LABS: ALBUMIN 3.1 g/dL (3.4-5.0); SGOT 47 U/L (15-37); SGPT 70 U/L (30-65); TOTAL BILIRUBIN 0.3 mg/dL (0.2-1.0); TOTAL PROTEIN 7.6 g/dL (6.4-8.2); TROPONIN-I <0.06 ng/mL (<0.06)
[2020-03-08 20:05] LABS: MICROCYTES 1+
[2020-03-08 20:06] LABS: ANISOCYTOSIS 2+; HYPOCHROMASIA SLIGHT; POLYCHROMASIA OCCASIONAL
[2020-03-08] MEDS ORDERED: IBUPROFEN 800800 M1 PO (20:28)
[2020-03-08 22:46] VITALS: BP 132/86
--- NOTE | 2020-03-09 07:45 | EKG ---
[facility] [place] [address] ELECTROCARDIOGRAM REPORT Name: RADHA BOURGEOIS Room #: DEP [facility]#: [id number] Admission: 03/08/20 Attend Phys: Discharge: 03/08/20 Date of : 86 Report #: [id number] THIS REPORT FOR: cc: BLAISE - No family physician/PCP BLAISE - No family physician/PCP Alex Leggett MD [facility] THIS REPORT FOR: //name// [facility] ED Test Date: 2020-03-08 Test Time: 19:23:52 Pat Name: RADHA BOURGEOIS Department: Room: Gender: F Lab Nurse: LUCIE : 1990 Requested By: Lia Mills Order Number: [id number] MD: Alex Leggett Measurements Intervals [place] Rate: 110 P: 58 NE: 149 QRS: 14 QRSD: 83 T: -19 QT: 322 QTc: 436 Interpretive Statements Sinus tachycardia Borderline repolarization abnormality Compared to ECG 12/20/2019 08:48:35 Heart rate has increased Electronically Signed On 03-09-2020 7:44:42 CDT by Alex Leggett [email or web address] <ELECTRONICALLY SIGNED> By: Alex Leggett MD, FACC 03/09/20 0744 192 22 Alex Leggett MD, [facility] /EPI
== END 2020-03-08 22:47 | disposition home or self-care (01) ==
LOC: ER 19:17
PROVIDERS: Student in an Organized Health Care Education/Training Program
DX: R00.2 Palpitations (principal); R11.2 Nausea with vomiting, unspecified; R19.7 Diarrhea, unspecified; I10 Essential (primary) hypertension; E11.9 Type 2 diabetes mellitus without complications; J45.909 Unspecified asthma, uncomplicated; G43.909 Migraine, unspecified, not intractable, without status migrainosus; I48.91 Unspecified atrial fibrillation; Z88.8 Allergy status to other drugs, medicaments and biological substances; Z88.0 Allergy status to penicillin; Z91.040 Latex allergy status; Z88.5 Allergy status to narcotic agent; Z79.82 Long term (current) use of aspirin; Z79.899 Other long term (current) drug therapy

== ENCOUNTER 2020-03-16 16:25 | Emergency (ER) | payer OTHER ==
[~2020-03-16] VITALS: Ht 180.3 cm; Wt 192.8 kg
[2020-03-16 17:30] LABS: CALCIUM 8.6 mg/dL (8.5-10.1); CREATININE 0.9 mg/dL (0.6-1.0); MAGNESIUM 1.8 mg/dL (1.8-2.4); POTASSIUM 3.7 mmol/L (3.5-5.1)
[2020-03-16] MEDS ORDERED: ZOFRAN ODT4 MG PO (17:45)
[2020-03-16 18:11] VITALS: BP 128/80
--- NOTE | 2020-03-17 07:43 | EKG ---
[facility] [place] [address] ELECTROCARDIOGRAM REPORT Name: RADHA BOURGEOIS Room #: DEP [facility]#: [id number] Admission: 03/16/20 Attend Phys: Discharge: 03/16/20 Date of : [birth year] Report #: [id number] THIS REPORT FOR: cc: BLAISE - Vianey family physician/PCP BLAISE - No family physician/PCP Alex Leggett MD [facility] THIS REPORT FOR: //name// [facility] ED Test Date: 2020-03-16 Test Time: 16:39:51 Pat Name: RADHA BOURGEOIS Department: Room: Gender: F Lab Coordinator: [facility] : 1990 Requested By: Eric Harris Order Number: [id number] MD: Alex Leggett Measurements Intervals [place] Rate: 95 P: 50 [place]: 143 QRS: 10 QRSD: 87 T: 16 QT: 359 QTc: 452 Interpretive Statements Sinus rhythm Probable left ventricular hypertrophy Compared to ECG 03/08/2020 19:23:52 Sinus tachycardia no longer present Electronically Signed On 03-17-2020 7:43:46 CDT by Alex Leggett [email or web address] <ELECTRONICALLY SIGNED> By: Alex Leggett MD, [facility] 03/17/20 0743 1639 1639 Alex Leggett MD, [facility] /EPI
== END 2020-03-16 18:13 | disposition home or self-care (01) ==
LOC: ER 16:25
PROVIDERS: Emergency Medicine
DX: R11.2 Nausea with vomiting, unspecified (principal); R19.7 Diarrhea, unspecified; I10 Essential (primary) hypertension; E11.9 Type 2 diabetes mellitus without complications; J45.909 Unspecified asthma, uncomplicated; E78.5 Hyperlipidemia, unspecified; I48.91 Unspecified atrial fibrillation; Z86.2 Personal history of diseases of the blood and blood-forming organs and certain disorders involving the immune mechanism; Z79.899 Other long term (current) drug therapy; Z88.0 Allergy status to penicillin; Z88.5 Allergy status to narcotic agent; Z88.8 Allergy status to other drugs, medicaments and biological substances; Z91.040 Latex allergy status; Z91.010 Allergy to peanuts

== ENCOUNTER 2020-04-04 19:42 | Emergency (ER) | payer OTHER ==
[~2020-04-04] VITALS: Ht 165.1 cm; Wt 138.3 kg
[2020-04-04] MEDS ORDERED: CARVEDILOL12.5 MG PO (20:05)
[2020-04-04] MEDS ORDERED: PREDNISONE 20 M20 MG PO (21:10)
[2020-04-04] MEDS ORDERED: PROAIR HFA8.5 GM INH (21:10)
[2020-04-04 21:46] VITALS: BP 125/77
== END 2020-04-04 21:47 | disposition home or self-care (01) ==
LOC: ER 19:42
DX: J45.901 Unspecified asthma with (acute) exacerbation (principal); I10 Essential (primary) hypertension; E11.9 Type 2 diabetes mellitus without complications; G43.909 Migraine, unspecified, not intractable, without status migrainosus; I48.91 Unspecified atrial fibrillation; Z79.899 Other long term (current) drug therapy; Z88.0 Allergy status to penicillin; Z88.5 Allergy status to narcotic agent; Z91.040 Latex allergy status; Z88.8 Allergy status to other drugs, medicaments and biological substances; Z91.010 Allergy to peanuts

== ENCOUNTER 2020-07-02 21:47 | Emergency (ER) | payer OTHER ==
[~2020-07-02] VITALS: Ht 180.3 cm; Wt 147.4 kg
[~2020-07-02 21:47] MED LIST changes: +CARVEDILOL12.5 MG PO; +PREDNISONE 20 M20 MG PO
[2020-07-02 23:18] VITALS: BP 125/82
--- NOTE | 2020-07-04 07:31 | EKG ---
[facility] [place] [address] ELECTROCARDIOGRAM REPORT Name: RADHA BOURGEOIS Room #: DEP [facility]#: [id number] Admission: 07/02/20 Attend Phys: Discharge: 07/02/20 Date of : [birth year] Report #: [id number] THIS REPORT FOR: cc: Johnson Busby MD, Jinming MD Lundgren, Craig H. MD [facility] ~ THIS REPORT FOR: //name// [facility] ED Test Date: 2020-07-02 Test Time: 22:43:04 Pat Name: RADHA BOURGEOIS Department: Room: Gender: Bundle Wrapper: : 1990 Requested By: Gustavo Arana Order Number: [id number] MD: Alex Leggett Measurements Intervals [place] Rate: 79 P: 53 ME: 136 QRS: 10 QRSD: 90 T: 4 QT: 404 QTc: 464 Interpretive Statements Sinus rhythm LVH by voltage Compared to ECG 03/16/2020 16:39:51 No significant changes Electronically Signed On 07-04-2020 7:30:59 CDT by Alex Leggett [email or web address] <ELECTRONICALLY SIGNED> By: Alex Leggett MD, FAC 07/04/2030 42 42 Alex Leggett MD, [facility] /EPI
== END 2020-07-02 23:21 | disposition home or self-care (01) ==
LOC: ER 21:47
DX: M54.6 Pain in thoracic spine (principal); M25.511 Pain in right shoulder; I10 Essential (primary) hypertension; E11.9 Type 2 diabetes mellitus without complications; J45.909 Unspecified asthma, uncomplicated; G43.909 Migraine, unspecified, not intractable, without status migrainosus; I48.91 Unspecified atrial fibrillation; Z90.89 Acquired absence of other organs; Z79.899 Other long term (current) drug therapy; Z79.82 Long term (current) use of aspirin; Z88.8 Allergy status to other drugs, medicaments and biological substances; Z91.010 Allergy to peanuts; Z88.0 Allergy status to penicillin; Z91.040 Latex allergy status; Z88.5 Allergy status to narcotic agent

== ENCOUNTER → 2020-08-23 | Emergency (ER) | payer OTHER | LOC: ER 19:30 | DX: R79.9 Abnormal finding of blood chemistry, unspecified (principal); Z53.21 Procedure and treatment not carried out due to patient leaving prior to being seen by health care provider ==

== ENCOUNTER 2021-02-08 15:09 | Emergency (ER) | payer OTHER ==
[~2021-02-08] VITALS: Ht 180.3 cm; Wt 192.8 kg
[2021-02-08 15:11] VITALS: BP 137/85
[2021-02-08 17:05] LABS: URINE BLOOD NEGATIVE (Negative); URINE CLARITY CLEAR; URINE COLOR YELLOW; URINE GLUCOSE-RANDOM* NEGATIVE (Negative); URINE KETONES TRACE (Negative); URINE LEUKOCYTES-REFLEX 2+ (Negative); URINE NITRITE-REFLEX NEGATIVE (Negative); URINE PROTEIN (DIPSTICK) TRACE (Negative); URINE SPECIFIC GRAVITY >= 1.030 (1.005-1.035)
[2021-02-08 17:07] LABS: ICTOTEST (BILI CONFIRMATORY) Negative (Negative)
[2021-02-08 17:08] LABS: URINE BILIRUBIN NEGATIVE (Negative)
[2021-02-08 17:15] LABS: SQUAMOUS 4-10 Moderate /LPF (0-3)
[2021-02-08 17:16] LABS: CASTS None Seen /LPF (None Seen); URINE WBC-REFLEX >25 Many /HPF (0-5)
[2021-02-08 17:17] LABS: ABSOLUTE NEUTROPHILS 5.2 thou/uL (1.4-8.2); BASOPHILS 0.4 % (0.0-2.0); EOSINOPHILS 0.8 % (0.0-3.0); HEMATOCRIT 30.6 % (37.0-47.0); HEMOGLOBIN 9.8 gm/dL (12.0-15.0); LYMPHOCYTES 20.6 % (24.0-44.0); MCH 23.7 pg (26.0-34.0); MCHC 31.9 g/dL (28.0-37.0); MCV 74.3 fL (80.0-100.0); MONOCYTES 4.5 % (1.0-8.0); PLATELET COUNT 410 thou/uL (150-400); POLYS 73.7 % (36.0-66.0); RBC 4.12 mil/uL (4.20-5.00); RDW 20.4 % (10.5-14.5); WBC 7.1 thou/uL (4.0-11.0)
[2021-02-08 17:17] LABS: URINE RBC 3-10 Few /HPF (NONE SEEN)
[2021-02-08 17:18] LABS: CRYSTALS None Seen /LPF (None Seen)
[2021-02-08 17:22] LABS: CALCIUM 8.7 mg/dL (8.5-10.1); CREATININE 0.7 mg/dL (0.6-1.0); POTASSIUM 3.5 mmol/L (3.5-5.1)
[2021-02-08 17:28] LABS: TOTAL BILIRUBIN 0.7 mg/dL (0.2-1.0); TOTAL PROTEIN 7.3 g/dL (6.4-8.2)
[2021-02-08] MEDS ORDERED: ONDANSETRON HCL4 M2 PO (17:45)
[2021-02-08] MEDS ORDERED: METROGEL-VAGINA70 GM VAG (17:45)
[2021-02-08] MEDS ORDERED: CEPHALEXIN500 MG PO (17:45)
[2021-02-08] MEDS ORDERED: FLAGYL500 M1 PO (18:00)
--- NOTE | 2021-02-09 07:13 | EKG ---
[facility] [place] [address] ELECTROCARDIOGRAM REPORT Name: RADHA BOURGEOISJANICEWendy Room #: DEP [facility]#: [id number] Admission: 02/08/21 Attend Phys: Discharge: 02/08/21 Date of : [birth year] Report #: [id number] [facility] ED Test Date: 2021-02-08 Test Time: 15:16:52 Pat Name: RADHA BOURGEOIS Department: Room: Gender: F Retail Sales Assistant: ROCKY : 1990 Requested By: Umair Trujillo Order Number: [id number] MD: Raleigh Taylor Measurements Intervals [place] Rate: 124 P: 43 [place]: 140 QRS: -14 QRSD: 80 T: QT: 336 QTc: 483 Interpretive Statements Sinus tachycardia Probable left atrial enlargement Probable left ventricular hypertrophy Anterior Q waves, possibly due to LVH Compared to ECG 07/02/2020 22:43:04 Q waves now present ST (T wave) deviation now present Sinus rhythm no longer present Electronically Signed On 02-09-2021 7:12:47 CDT by Raleigh Taylor [email or web address] <ELECTRONICALLY SIGNED> By: Raleigh Taylor MD, [facility] 02/09/21711 1516 151 Raleigh Taylor MD, [facility] /EPI
== END 2021-02-08 18:07 | disposition home or self-care (01) ==
LOC: ER 15:09
PROVIDERS: Physician Assistant
DX: N39.0 Urinary tract infection, site not specified (principal); A59.9 Trichomoniasis, unspecified; I10 Essential (primary) hypertension; E11.9 Type 2 diabetes mellitus without complications; J45.909 Unspecified asthma, uncomplicated; G43.909 Migraine, unspecified, not intractable, without status migrainosus; I48.91 Unspecified atrial fibrillation; Z90.89 Acquired absence of other organs; Z88.0 Allergy status to penicillin; Z88.5 Allergy status to narcotic agent; Z91.040 Latex allergy status; Z88.8 Allergy status to other drugs, medicaments and biological substances; Z91.010 Allergy to peanuts; Z79.899 Other long term (current) drug therapy